=== PATIENT | male | born 1995 | race Caucasian/White ===

== ENCOUNTER 2018-10-14 16:17 | Emergency (ER) | payer OTHER ==
[2018-10-14] MEDS ORDERED: FAMOTIDINE 20 MG/2 ML VIAL IV ONE (17:13)
[2018-10-14] MEDS ORDERED: ONDANSETRON 4 MG/2 ML VIAL ONE (17:13)
[2018-10-14 17:17] LABS: Basophils % 0.2 % (0-1.3); Lymphocytes % 11.8 % (15.3-44.8); MPV 9.5 fL (7.6-11.3); RBC Red Blood Cell Count 4.81 M/uL (4.33-5.43)
[2018-10-14 17:30] LABS: Albumin 3.6 g/dL (3.4-5.0); Bilirubin Direct 0.2 mg/dL (0-0.2); Bilirubin Total 0.5 mg/dL (0.2-1.0); Potassium 3.9 mmol/L (3.5-5.1); Protein, Total 6.8 g/dL (6.4-8.2)
[2018-10-14 17:35] LABS: Urine Blood NEGATIVE (NEG); Urine Glucose NEGATIVE (NEG); Urine Protein 1+ (NEG); Urine pH 7.5 (5.0-7.0)
[2018-10-14 17:45] LABS: Urine Bacteria <20 /HPF (NONE SEEN); Urine Culture Reflex Order NOT NEEDED; Urine RBC NONE SEEN /HPF (NONE SEEN)
[2018-10-14] MEDS ORDERED: MORPHINE 2 MG/ML SYR ONE (18:17)
--- NOTE | 2018-10-14 18:19 | RAD REPORT ---
EXAM DESCRIPTION: CTAbdomen Pelvis W Contrast - 10/14/2018 6:10 pm CLINICAL HISTORY: Abdominal pain. upper abdomen pain COMPARISON: CT ABD PELVIS W CONTRAST dated 05/04/2013 TECHNIQUE: Biphasic CT imaging of the abdomen and pelvis was performed with 100 ml non-ionic IV cont rast. All CT scans are performed using dose optimization technique as appropriate and may include automated exposure control or mA/KV adjustment according to patient size. FINDINGS: The lung bases are clear. The liver, spleen, pancreas, adrenal glands and kidneys are within normal limits. Multiple thickened and prominent small bowel loops are present in the left abdomen. A few mildly prom inent small bowel lymph nodes are present in the mesenteric. Small amount of free fluid is seen about the hepatic edge, lower abdomen and pelvis. The appendix is normal. No free air or abscess. No suspicious bony findings. IMPRESSION: Prominent and thickened small bowel loops in the left abdomen with mild free fluid prese nt. Findings suggest moderate enteritis, possibly related to infection or inflammatory bowel disease.
[2018-10-14] MEDS ORDERED: NA CHLORIDE 0.9% 1,000 ML ONE (18:29)
[2018-10-14] MEDS ORDERED: MAGNE/ALUM HYDROXD 30 ML UCUP ONE (18:43)
[2018-10-14] MEDS ORDERED: LIDOCAINE VISCOUS 2% SOLN 15 ML UDC ONE (18:43)
--- NOTE | 2018-10-14 18:45 | EDPHYS ---
Physician Documentation [facility] Name: Gildardo Mccann Age: 23 yrs Sex: Male : 1995 Arrival Date: 10/14/2018 Time: 16:23 Bed 20 Private MD: ED Physician Levon Soriano HPI: 10/14 17:00 This 23 yrs old Male presents to ER via Ambulatory with complaints of cp Abdominal Pain. 17:00 The patient presents with abdominal pain mid abdomen. Onset: The symptoms/episode cp began/occurred 1 week(s) ago. The symptoms do not radiate. Associated signs and symptoms: Pertinent positives: nausea and vomiting, anorexia, diarrhea, Pertinent negatives: blood in stools, chest pain, constipation, dysuria, fever, shortness of breath, testicular pain, vomiting blood. The symptoms are described as waxing/waning. Modifying factors: the symptoms are aggravated by food. Severity of pain: in the emergency department the pain is unchanged despite home interventions. Historical: - Allergies: 16:28 No Known Allergies; aj - Immunization history:: Adult Immunizations up to date. - Social history:: Smoking status: Patient/guardian denies using tobacco. - Ebola Screening: : Patient negative for fever greater than or equal to 101.5 degrees Fahrenheit, and additional compatible Ebola Virus Disease symptoms Patient denies exposure to infectious person Patient denies travel to an Ebola-affected area in the 21 days before illness onset No symptoms or risks identified at this time. ROS: 17:05 Constitutional: Negative for body aches, chills, fever, poor PO intake, weight loss. cp 17:05 Eyes: Negative for injury, pain, redness, and discharge. cp 17:05 ENT: Negative for drainage from ear(s), ear pain, sore throat, difficulty swallowing, difficulty handling secretions. 17:05 Cardiovascular: Negative for chest pain, palpitations. cp 17:05 Respiratory: Negative for cough, shortness of breath, wheezing. cp 17:05 Abdomen/GI: Positive for abdominal pain, nausea and vomiting, diarrhea, Negative for constipation, dysphagia, hematemesis, black/tarry stool, rectal bleeding. 17:05 : Positive for burning with urination, Negative for testicular pain 17:05 Skin: Negative for rash. 17:05 All other systems are negative. Exam: 17:15 Constitutional: The patient appears in no acute distress, alert, awake, cp non-diaphoretic, non-toxic, well developed, well nourished. 17:15 Head/Face: Normocephalic, atraumatic. cp 17:15 Eyes: Periorbital structures: appear normal, Conjunctiva: normal, no exudate, no injection, Sclera: no appreciated abnormality, Lids and lashes: appear normal, bilaterally. 17:15 ENT: External ear(s): are unremarkable, Nose: is normal, Mouth: Lips: moist, Oral mucosa: pink and intact, moist, Posterior pharynx: is normal, airway is patent, no erythema, no exudate. 17:15 Neck: ROM/movement: is normal, is supple, without pain, no range of motions limitations, no nuchal rigidity. 17:15 Chest/axilla: Inspection: normal, Palpation: is normal, no crepitus, no tenderness. 17:15 Cardiovascular: Rate: normal, Rhythm: regular. 17:15 Respiratory: the patient does not display signs of respiratory distress, Respirations: normal, no use of accessory muscles, no retractions, no splinting, no tachypnea, labored breathing, is not present, Breath sounds: are clear throughout, no decreased breath sounds, no stridor, no wheezing. 17:15 Abdomen/GI: Inspection: abdomen appears normal, Bowel sounds: active, all quadrants, Palpation: soft, in all quadrants, moderate abdominal tenderness, in the epigastric area, right upper quadrant and left upper quadrant, rebound tenderness, is not appreciated, involuntary guarding, is not appreciated. 17:15 Back: pain, is absent, ROM is normal. 17:15 Skin: no rash present. Vital Signs: 16:28 BP 158 / 83; Pulse 70; Resp 16; Temp 99.4; Pulse Ox 98% on R/A; Weight 99.79 kg; Height aj 6 ft. 0 in. (182.88 cm); 17:27 BP 127 / 74; Pulse 70; Resp 17; Pulse Ox 99% on R/A; tw2 18:29 BP 139 / 79; Pulse 80; Resp 17; Pulse Ox 97% on R/A; tw2 19:39 BP 135 / 70; Pulse 81; Resp 16; Temp 98.2; Pulse Ox 99% on R/A; Pain 0/10; ak1 16:28 Body Mass Index 29.84 (99.79 kg, 182.88 cm) aj MDM: 16:44 Patient medically screened. cp 17:00 Differential diagnosis: appendicitis, bowel obstruction, cholecystitis, Cholelithiasis, cp diverticulitis, gastritis, non-specific abd pain, pancreatitis, Peptic Ulcer Disease, Perf. Duodenal Ulcer, Perf. Gastric Ulcer. 18:44 Data reviewed: vital signs, nurses notes, lab test result(s), radiologic studies, CT cp scan. 18:44 Counseling: I had a detailed discussion with the patient and/or guardian regarding: the cp historical points, exam findings, and any diagnostic results supporting the discharge/admit diagnosis, lab results, radiology results, the need for outpatient follow up, a social insurance analyst, to return to the emergency department if symptoms worsen or persist or if there are any questions or concerns that arise at home. Response to treatment: the patient's symptoms have mildly improved after treatment, and as a result, I will discharge patient. 10/14 16:53 Order name: Basic Metabolic Panel; Complete Time: 17:36 cp 10/14 18:23 Interpretation: Normal except: GFR 71. 10/14 16:53 Order name: CBC with Diff 10/14 18:23 Interpretation: Normal except: WBC 16.7; LYM% 11.8; EOSINOPHIL % 23.7; NEUT A 10.1. 10/14 16:53 Order name: Creatinine for Radiology; Complete Time: 17:36 10/14 16:53 Order name: Hepatic Function; Complete Time: 17:36 10/14 16:53 Order name: Lipase; Complete Time: 17:36 10/14 16:53 Order name: Urine Microscopic Only; Complete Time: 17:49 cp 10/14 17:30 Order name: Urine Dipstick--Ancillary (enter results); Complete Time: 17:36 10/14 17:48 Order name: CT Abd/Pelvis - IV Contrast Only; Complete Time: 18:21 10/14 16:53 Order name: IV Saline Lock; Complete Time: 17:09 10/14 16:53 Order name: Labs collected and sent; Complete Time: 17:09 10/14 16:53 Order name: Urine Dipstick-Ancillary (obtain specimen); Complete Time: 17:26 cp 10/14 16:53 Order name: NPO; Complete Time: 17:26 cp 10/14 18:25 Order name: PO challenge; Complete Time: 19:02 cp Administered Medications: 17:02 Drug: Pepcid 20 mg Route: IVP; Site: right antecubital; tw2 17:54 Follow up: Response: No adverse reaction tw2 17:07 Drug: Zofran 4 mg Route: IVP; Site: right antecubital; tw2 17:53 Follow up: Response: No adverse reaction tw2 18:04 Drug: morphine 2 mg Route: IVP; Site: right antecubital; tw2 18:28 Follow up: Response: No adverse reaction; Pain is decreased tw2 18:28 Drug: NS 0.9% 1000 ml Route: IV; Rate: 1 bolus; Site: right antecubital; tw2 19:36 Follow up: IV Status: Completed infusion; IV Intake: 1000ml ak1 18:28 Drug: GI Cocktail without - (Maalox Suspension 30 ml, Lidocaine Liquid 2 % 15 tw2 ml) Route: PO; 19:00 Follow up: Response: No adverse reaction tw2 19:34 Not Given (Other Intervention Used): metroNIDAZOLE 500 mg 100 ml IVPB once over 30 mins ak1 19:35 Drug: Ciprofloxacin 500 mg Route: PO; ak1 19:38 Follow up: Response: No adverse reaction; Medication administered at discharge. ak1 19:36 Drug: Flagyl 500 mg Route: PO; ak1 19:38 Follow up: Response: No adverse reaction; Medication administered at discharge. ak1 Disposition: 10/14/18 18:45 Discharged to Home. Impression: Unspecified abdominal pain. - Condition is Stable. - Discharge Instructions: Abdominal Pain, Adult. - Prescriptions for Cipro 500 mg Oral Tablet - take 1 tablet by ORAL route every 12 hours for 10 days; 20 tablet. Zofran 4 mg Oral Tablet - take 1 tablet by ORAL route every 12 hours As needed; 20 tablet. Metronidazole 500 mg Oral Tablet - take 1 tablet by ORAL route every 8 hours; 30 tablet. Tramadol 50 mg Oral Tablet - take 1 tablet by ORAL route every 8 hours as needed; 15 tablet. - Medication Reconciliation Form, Thank You Letter, Antibiotic Education, Prescription Opioid Use, Work release form form. - Follow up: Refugio Chaves MD; When: 2 - 3 days; Reason: Recheck today's complaints. - Problem is new. - Symptoms have improved. Addendum: 10/16/2018 19:12 Co-signature as Attending Physician, Levon Soriano MD. r n Signatures: Dispatcher [employer] Jane Davison, RN RN Levon Marie MD MD rn Krenek, Amber RN RN ak1 Pepe Resendiz PA PA cp Wise, Tara RN RN tw2 Corrections: (The following items were deleted from the chart) 10/14 19:40 18:45 10/14/2018 18:45 Discharged to Home. Impression: Unspecified abdominal pain. ak1 Condition is Stable. Forms are Work release form, Medication Reconciliation Form, Thank You Letter, Antibiotic Education, Prescription Opioid Use. Follow up: Refugio Chaves; When: 2 - 3 days; Reason: Recheck today's complaints. Problem is new. Symptoms have improved. cp
--- NOTE | 2018-10-14 18:45 | ER ---
Nurse's Notes [facility] Name: Gildardo Mccann Age: 23 yrs Sex: Male : 1995 Arrival Date: 10/14/2018 Time: 16:23 Bed 20 Private MD: Diagnosis: Unspecified abdominal pain Presentation: 10/14 16:27 Presenting complaint: Patient states: Generalized abdominal pain for 1 week that is aj worse after eating. Intolerance of food and fluids. Transition of care: patient was not received from another setting of care. Onset of symptoms was October 07, 2018. Risk Assessment: Do you want to hurt yourself or someone else? Patient reports no desire to harm self or others. Initial Sepsis Screen: Does the patient meet any 2 criteria? No. Patient's initial sepsis screen is negative. Does the patient have a suspected source of infection? No. Patient's initial sepsis screen is negative. Care prior to arrival: None. 16:27 Method Of Arrival: Ambulatory aj 16:27 Acuity: ERIN 3 aj Triage Assessment: 16:28 General: Appears in no apparent distress. comfortable, Behavior is calm, cooperative, aj appropriate for age. Pain: Complains of pain in abdomen. Neuro: Level of Consciousness is awake, alert, obeys commands, Oriented to person, place, time, situation, Appropriate for age. Respiratory: Airway is patent Respiratory effort is even, unlabored, Respiratory pattern is regular, symmetrical. GI: Reports lower abdominal pain, upper abdominal pain, intolerance of fluids, intolerance of food, nausea, vomiting. Derm: Skin is intact, is healthy with good turgor, Skin is pink, warm \T\ dry. normal. Historical: - Allergies: 16:28 No Known Allergies; aj - Immunization history:: Adult Immunizations up to date. - Social history:: Smoking status: Patient/guardian denies using tobacco. - Ebola Screening: : Patient negative for fever greater than or equal to 101.5 degrees Fahrenheit, and additional compatible Ebola Virus Disease symptoms Patient denies exposure to infectious person Patient denies travel to an Ebola-affected area in the 21 days before illness onset No symptoms or risks identified at this time. Screenin:11 Abuse screen: Denies threats or abuse. Nutritional screening: No deficits noted. tw2 Tuberculosis screening: No symptoms or risk factors identified. Fall Risk None identified. Assessment: 17:09 General: Appears in no apparent distress. slender, Behavior is calm, cooperative, tw2 appropriate for age. Pain: Complains of pain in abdomen. Neuro: Level of Consciousness is awake, alert, obeys commands, Oriented to person, place, time, situation. Cardiovascular: Heart tones S1 S2 Patient's skin is warm and dry. Respiratory: Airway is patent Respiratory effort is even, unlabored, Respiratory pattern is regular, symmetrical, Breath sounds are clear bilaterally. GI: Abdomen is flat, Bowel sounds present X 4 quads. Abd is soft and non tender X 4 quads. Reports indigestion, nausea. : No signs and/or symptoms were reported regarding the genitourinary system. EENT: No signs and/or symptoms were reported regarding the EENT system. Derm: No signs and/or symptoms reported regarding the dermatologic system. Musculoskeletal: Range of motion: intact in all extremities. 17:27 Reassessment: Patient appears in no apparent distress at this time. No changes from tw2 previously documented assessment. Patient and/or family updated on plan of care and expected duration. Pain level reassessed. Patient is alert, oriented x 3, equal unlabored respirations, skin warm/dry/pink. 18:29 Reassessment: Patient appears in no apparent distress at this time. No changes from tw2 previously documented assessment. Patient and/or family updated on plan of care and expected duration. Pain level reassessed. Patient is alert, oriented x 3, equal unlabored respirations, skin warm/dry/pink. 19:01 Reassessment: pt given Sprite to drink at this time, tolerated well. tw2 19:38 Reassessment: Patient appears in no apparent distress at this time. Patient and/or ak1 family updated on plan of care and expected duration. Pain level reassessed. Patient is alert, oriented x 3, equal unlabored respirations, skin warm/dry/pink. Patient states feeling better. Patient states symptoms have improved. GI: Abdomen is flat, non-distended, Bowel sounds present X 4 quads. Abd is soft and non tender X 4 quads. Vital Signs: 16:28 BP 158 / 83; Pulse 70; Resp 16; Temp 99.4; Pulse Ox 98% on R/A; Weight 99.79 kg; Height aj 6 ft. 0 in. (182.88 cm); 17:27 BP 127 / 74; Pulse 70; Resp 17; Pulse Ox 99% on R/A; tw2 18:29 BP 139 / 79; Pulse 80; Resp 17; Pulse Ox 97% on R/A; tw2 19:39 BP 135 / 70; Pulse 81; Resp 16; Temp 98.2; Pulse Ox 99% on R/A; Pain 0/10; ak1 16:28 Body Mass Index 29.84 (99.79 kg, 182.88 cm) ED Course: 16:23 Patient arrived in ED. mr 16:28 Triage completed. aj 16:28 Arm band placed on right wrist. Patient placed in an exam room. aj 16:30 Bed in low position. Adult w/ patient. Pulse ox on. NIBP on. tw2 16:31 Pepe Resendiz PA is PHCP. cp 16:31 Levon Soriano MD is Attending Physician. cp 16:48 Xi Orosco RN is Primary Nurse. tw2 17:02 Inserted saline lock: 20 gauge in right antecubital area, using aseptic technique. tw2 Blood collected. 17:26 Urine Microscopic Only Sent. bd 18:12 CT Abd/Pelvis - IV Contrast Only In Process Unspecified. EDMS 18:44 Refugio Chaves MD is Referral Physician. cp 18:46 Awaiting: completion of IV fluids PRIOR to discharge. tw2 18:46 No provider procedures requiring assistance completed. tw2 19:01 Report given to ARSENIO Sepulveda - pending completion of IV fluids at this time. tw2 19:39 IV discontinued, intact, bleeding controlled, No redness/swelling at site. Pressure ak1 dressing applied. Administered Medications: 17:02 Drug: Pepcid 20 mg Route: IVP; Site: right antecubital; tw2 17:54 Follow up: Response: No adverse reaction tw2 17:07 Drug: Zofran 4 mg Route: IVP; Site: right antecubital; tw2 17:53 Follow up: Response: No adverse reaction tw2 18:04 Drug: morphine 2 mg Route: IVP; Site: right antecubital; tw2 18:28 Follow up: Response: No adverse reaction; Pain is decreased tw2 18:28 Drug: NS 0.9% 1000 ml Route: IV; Rate: 1 bolus; Site: right antecubital; tw2 19:36 Follow up: IV Status: Completed infusion; IV Intake: 1000ml ak1 18:28 Drug: GI Cocktail without - (Maalox Suspension 30 ml, Lidocaine Liquid 2 % 15 tw2 ml) Route: PO; 19:00 Follow up: Response: No adverse reaction tw2 19:34 Not Given (Other Intervention Used): metroNIDAZOLE 500 mg 100 ml IVPB once over 30 mins ak1 19:35 Drug: Ciprofloxacin 500 mg Route: PO; ak1 19:38 Follow up: Response: No adverse reaction; Medication administered at discharge. ak1 19:36 Drug: Flagyl 500 mg Route: PO; ak1 19:38 Follow up: Response: No adverse reaction; Medication administered at discharge. ak1 Intake: 19:36 IV: 1000ml; Total: 1000ml. ak1 Outcome: 18:45 Discharge ordered by MD. cp 19:39 Discharged to home ambulatory, with family. ak1 19:39 Condition: good 19:39 Discharge instructions given to patient, Instructed on discharge instructions, follow up and referral plans. no drinking with medication, no driving heavy equipment, medication usage, Demonstrated understanding of instructions, follow-up care, medications, Prescriptions given X 4. 19:40 Patient left the ED. ak1 Signatures: Dispatcher [employer] EDMS Tamika Arroyo Amanda, RN Krys Nguyen Amber RN RN ak1 Pepe Resendiz PA PA cp Wise, Tara, RN RN tw2
[2018-10-14] MEDS ORDERED: metroNIDAZOLE 500 MG TABLET ONE (19:45)
[2018-10-14] MEDS ORDERED: CIPROFLOXACIN HCL 500 MG TAB ONE (19:45)
[2018-10-14 20:43] LABS: Blood Morphology Comment NOT SEEN (NOT SEEN); Platelet Estimate ADEQ
== END 2018-10-14 19:40 | disposition home or self-care (01) ==
LOC: ER 16:17
DX: R10.9 Unspecified abdominal pain (principal)
CPT/HCPCS: 36415; 74177; 80048; 80076; 81003; 81015; 83690; 85025; 96361; 96374; 96375; 99284; J2270; J2405; J7030; Q9967

== ENCOUNTER 2018-10-21 12:13 | Inpatient (IN) | payer OTHER ==
[2018-10-21] MEDS ORDERED: DIPHENHYDRAMINE 50 MG/ML VIAL ONE (14:15)
[2018-10-21] MEDS ORDERED: NA CHLORIDE 0.9% 1,000 ML ONE (14:15)
[2018-10-21] MEDS ORDERED: METOCLOPRAMIDE 10 MG/2mL INJ ONE (14:15)
[2018-10-21 14:19] LABS: MPV 9.8 fL (7.6-11.3)
[2018-10-21 14:26] LABS: Absolute Lymphocytes (CBC) 2.1 K/uL (0.7-4.9); Basophils % 0.1 % (0-1.3); Hematocrit 48.4 % (39.6-49.0); Lymphocytes % 9.3 % (15.3-44.8); RBC Red Blood Cell Count 5.42 M/uL (4.33-5.43)
[2018-10-21] MEDS ORDERED: MORPHINE 4 MG/ML SYR ONE ×2 (14:28→17:29)
[2018-10-21 14:35] LABS: Albumin 3.8 g/dL (3.4-5.0); Bilirubin Direct 0.3 mg/dL (0-0.2); Bilirubin Total 0.6 mg/dL (0.2-1.0); Potassium 4.2 mmol/L (3.5-5.1); Protein, Total 6.8 g/dL (6.4-8.2)
[2018-10-21 14:52] LABS: Blood Morphology Comment NOT SEEN (NOT SEEN); Platelet Estimate ADEQ
[2018-10-21] MEDS ORDERED: ONDANSETRON 4 MG/2 ML VIAL ONE ×2 (15:22→17:45)
--- NOTE | 2018-10-21 16:27 | RAD REPORT ---
EXAM DESCRIPTION: CTAbdomen Pelvis W Contrast - 10/21/2018 4:19 pm CLINICAL HISTORY: Abdominal pain. vomiting, right sided abdominal pain COMPARISON: Abdomen Pelvis W Contrast dated 10/14/2018; CT ABD PELVIS W CONTRAST dated 05/04/2013 TECHNIQUE: Biphasic CT imaging of the abdomen and pelvis was performed with 100 ml non-ionic IV cont rast. All CT scans are performed using dose optimization technique as appropriate and may include automated exposure control or mA/KV adjustment according to patient size. FINDINGS: A small right pleural effusion is noted. Mild distal esophageal thickening is seen. The liver demonstrates no focal mass or intrahepatic biliary dilatation. The spleen, pancreas, adrena l glands and kidneys are within normal limits. Mild free fluid has developed in the abdomen and pelvis since comparative study. Inflammatory changes are present involving the colon particularly the hepatic flexure and transverse colon. Thickened ter omari ileum is also seen. The appendix is normal. No suspicious bony findings. IMPRESSION: Moderate enteritis/colitis pattern is identified. Mild ascites and a small right pleural effusion has developed since the comparative study.
--- NOTE | 2018-10-21 17:00 | EDPHYS ---
Physician Documentation [facility] Name: Gildardo Mccann Age: 23 yrs Sex: Male : 1995 Arrival Date: 10/21/2018 Time: 12:17 Bed 14 Private MD: Ronal Chapa ED Physician Levon Soriano HPI: 10/21 13:23 This 23 yrs old Male presents to ER via Ambulatory with complaints of jmm Abdominal Pain. 13:23 The patient presents with abdominal pain that is diffuse. jmm 13:23 Onset: The symptoms/episode began/occurred gradually. jmm 13:23 The symptoms do not radiate. Associated signs and symptoms: Pertinent positives: jmm diarrhea, vomiting. The symptoms are described as achy. Modifying factors: The symptoms are alleviated by nothing, the symptoms are aggravated by drinking. This is a 23 year old male with no chronic medical conditions that presents to the ED with complaints of generalized abdominal pain, vomiting, diarrhea beginning approx 2 weeks ago. Was seen in the ED. 1 week ago and diagnosed with colitis. Patient was evaluated by Dr. Dias outpatient. Pain increased today with inability to tolerate fluids by mouth. . Historical: - Allergies: 12:30 No Known Allergies; hb - Home Meds: 12:30 Omeprazole Oral [Active]; Zofran Oral [Active]; hb - PSHx: 12:30 None; hb - Immunization history:: Adult Immunizations up to date. - Social history:: Smoking status: Patient/guardian denies using tobacco. - Ebola Screening: : No symptoms or risks identified at this time. ROS: 13:23 Constitutional: Negative for fever, chills, and weight loss, Cardiovascular: Negative jmm for chest pain, palpitations, and edema, Respiratory: Negative for shortness of breath, cough, wheezing, and pleuritic chest pain. 13:23 MS/Extremity: Negative for injury and deformity, Neuro: Negative for headache, weakness, numbness, tingling, and seizure. 13:23 Abdomen/GI: Positive for abdominal pain, vomiting, diarrhea. 13:23 All other systems are negative. Exam: 13:23 Head/Face: atraumatic. Eyes: EOMI, no conjunctival erythema appreciated ENT: Moist jmm Mucus Membranes Neck: Trachea midline, Supple Chest/axilla: Normal chest wall appearance and motion. Cardiovascular: Regular rate and rhythm. No edema appreciated Respiratory: Normal respirations, no respiratory distress appreciated 13:23 Back: Normal ROM Skin: General appearance color normal MS/ Extremity: Moves all extremities, no obvious deformities appreciated, no edema noted to the lower extremities Neuro: Awake and alert, normal gait Psych: Behavior is normal, Mood is normal, Patient is cooperative and pleasant 13:23 Constitutional: The patient appears in no acute distress, alert, awake. 13:23 Abdomen/GI: Inspection: abdomen appears normal, Bowel sounds: normal, Palpation: soft, mild abdominal tenderness, in all quadrants. Vital Signs: 12:29 BP 136 / 85; Pulse 89; Resp 16; Temp 98.9(TE); Pulse Ox 97% on R/A; Weight 95.25 kg; hb Height 6 ft. (182.88 cm); Pain 6/10; 14:16 BP 136 / 90; Pulse 79; Resp 18; Pulse Ox 100% on R/A; aj1 15:30 BP 134 / 86; Pulse 73; Resp 18; Pulse Ox 97% on R/A; aj1 12:29 Body Mass Index 28.48 (95.25 kg, 182.88 cm) hb MDM: 13:23 Patient medically screened. [facility] 16:55 Data reviewed: vital signs, nurses notes. Counseling: I had a detailed discussion with april the patient and/or guardian regarding: the historical points, exam findings, and any diagnostic results supporting the discharge/admit diagnosis, lab results, radiology results, the need for further work-up and treatment in the hospital. ED course: I discussed the patient with Dr. Patel whom accepted admission. I also discussed the patient with Jorden Rutherford whom stated dir. Dias will consult on admission. . 10/21 13:27 Order name: Basic Metabolic Panel; Complete Time: 15:09 [facility] 10/21 13:27 Order name: CBC with Diff; Complete Time: 15: [facility] 10/21 13:27 Order name: Creatinine for Radiology; Complete Time: 15:09 [facility] 10/21 13:27 Order name: Hepatic Function; Complete Time: 15:09 [facility] 10/21 13:27 Order name: Lipase; Complete Time: 15:09 [facility] 10/21 14:31 Order name: Manual Differential; Complete Time: 15: [facility] 10/21 13:28 Order name: CT Abd/Pelvis - PO and IV Contrast; Complete Time: 16:29 [facility] 10/21 16:49 Order name: US Abdomen Limited [facility] 10/21 13:27 Order name: IV Saline Lock; Complete Time: 14:21 [facility] 10/21 13:27 Order name: Labs collected and sent; Complete Time: 14:21 [facility] Administered Medications: 14:20 Drug: diphenhydrAMINE 12.5 mg Route: IVP; Site: right antecubital; aj1 15:30 Follow up: Response: No adverse reaction aj1 14:20 Drug: morphine 4 mg Route: IVP; Site: right antecubital; aj1 15:30 Follow up: Response: No adverse reaction; Pain is decreased aj1 14:21 Drug: NS 0.9% 1000 ml Route: IV; Rate: 1 bolus; Site: right antecubital; aj1 15:30 Follow up: IV Status: Completed infusion; IV Intake: 1000ml aj1 14:21 Drug: Reglan 10 mg Route: IVP; Site: right antecubital; aj1 15:30 Follow up: Response: No adverse reaction aj1 15:08 Drug: Zofran 4 mg Route: IVP; Site: right antecubital; aj1 16:00 Follow up: Response: No adverse reaction; Nausea is decreased aj1 17:27 Drug: Zosyn 3.375 grams Route: IVPB; Infused Over: 60 mins; Site: right antecubital; aj1 18:07 Follow up: IV Status: Infusion continued upon admission; IV Intake: 50ml aj1 17:28 Drug: morphine 4 mg Route: IVP; Site: right antecubital; aj1 18:07 Follow up: Response: No adverse reaction; Pain is decreased aj1 17:33 Drug: Zofran 4 mg Route: IVP; Site: right antecubital; aj1 18:08 Follow up: Response: No adverse reaction; Nausea is decreased aj1 Disposition: 18:21 Co-signature as Attending Physician, Levon Soriano MD. rn Disposition: 10/21/18 16:59 Hospitalization ordered by Brock Patel for Observation. Preliminary diagnosis are Colitis, Failed Outpatient Therapy. - Bed requested for Telemetry/MedSurg (observation). - Status is Observation. aj1 - Condition is Stable. - Problem is new. - Symptoms are unchanged. UTI on Admission? No Signatures: Dispatcher [employer] EDMS Jeanine Muñiz RN RN aj1 Nini Richter RN Rian Castro PA PA jmm Nieto, Roman, MD MD rn Baxter, Heather, RN RN Corrections: (The following items were deleted from the chart) 16:58 16:58 10/21/2018 16:58 Discharged to Home. Impression: Colitis; Failed Outpatient jmm Therapy. Condition is Stable. Forms are Medication Reconciliation Form, Thank You Letter, Antibiotic Education, Prescription Opioid Use. Follow up: Brock Patel; When: 2 - 3 days; Reason: Recheck today's complaints, Continuance of care, Re-evaluation by your physician. [facility] 17:28 16:59 Hospitalization Ordered by Brock Patel MD for Observation. Preliminary diagnosis dw is Colitis; Failed Outpatient Therapy. Bed requested for Telemetry/MedSurg (observation). Status is Observation. Condition is Stable. Problem is new. Symptoms are unchanged. UTI on Admission? No. [facility] 18:13 17:28 10/21/2018 16:59 Hospitalization Ordered by Brock Patel MD for Observation. aj1 Preliminary diagnosis is Colitis; Failed Outpatient Therapy. Bed requested for Telemetry/MedSurg (observation). Status is Observation. Condition is Stable. Problem is new. Symptoms are unchanged. UTI on Admission? No. dw
--- NOTE | 2018-10-21 17:00 | ER ---
Nurse's Notes [facility] Name: Gildardo Mccann Age: 23 yrs Sex: Male : 1995 Arrival Date: 10/21/2018 Time: 12:17 Bed 14 [facility] MD: Ronal Chapa Diagnosis: Colitis;Failed Outpatient Therapy Presentation: 10/21 12:27 Presenting complaint: Right sided abdominal pain and N/V x 2 weeks. Not tolerating hb fluids. Transition of care: patient was not received from another setting of care. Onset of symptoms is unknown. Risk Assessment: Do you want to hurt yourself or someone else? Patient reports no desire to harm self or others. Initial Sepsis Screen: Does the patient meet any 2 criteria? No. Patient's initial sepsis screen is negative. Does the patient have a suspected source of infection? No. Patient's initial sepsis screen is negative. Care prior to arrival: None. 12:27 Method Of Arrival: Ambulatory hb 12:27 Acuity: ERIN 3 hb Historical: - Allergies: 12:30 No Known Allergies; hb - Home Meds: 12:30 Omeprazole Oral [Active]; Zofran Oral [Active]; hb - PSHx: 12:30 None; hb - Immunization history:: Adult Immunizations up to date. - Social history:: Smoking status: Patient/guardian denies using tobacco. - Ebola Screening: : No symptoms or risks identified at this time. Screenin:21 Abuse screen: Denies threats or abuse. Denies injuries from another. Nutritional aj1 screening: No deficits noted. Tuberculosis screening: No symptoms or risk factors identified. 18:09 Fall Risk No fall in past 12 months (0 pts). No secondary diagnosis (0 pts). IV access aj1 (20 points). Ambulatory Aid- None/Bed Rest/Nurse Assist (0 pts). Gait- Normal/Bed Rest/Wheelchair (0 pts) Mental Status- Oriented to own ability (0 pts). Total Saucedo Fall Scale indicates No Risk (0-24 pts). Assessment: 13:21 General: Appears in no apparent distress. uncomfortable, Behavior is calm, cooperative, aj1 appropriate for age. Pain: Complains of pain in abdomen Pain does not radiate. Neuro: Level of Consciousness is awake, alert, obeys commands, Oriented to person, place, time, situation. Cardiovascular: Patient's skin is warm and dry. Respiratory: Airway is patent Respiratory effort is even, unlabored, Respiratory pattern is regular, symmetrical. GI: Abdomen is flat, non-distended, Bowel sounds present X 4 quads. Abd is soft X 4 quads Abdomen is tender to palpation in right upper quadrant Reports nausea, vomiting, since for the past 2 weeks. : No signs and/or symptoms were reported regarding the genitourinary system. EENT: No signs and/or symptoms were reported regarding the EENT system. Derm: No signs and/or symptoms reported regarding the dermatologic system. Skin is pink, warm \T\ dry. normal. Musculoskeletal: No signs and/or symptoms reported regarding the musculoskeletal system. Circulation, motion, and sensation intact. 14:16 Reassessment: Patient appears in no apparent distress at this time. No changes from aj1 previously documented assessment. Patient and/or family updated on plan of care and expected duration. Pain level reassessed. Patient is alert, oriented x 3, equal unlabored respirations, skin warm/dry/pink. 14:36 Reassessment: Notified CT that patient has finished his contrast. aj1 15:30 Reassessment: Patient appears in no apparent distress at this time. No changes from aj1 previously documented assessment. Patient and/or family updated on plan of care and expected duration. Pain level reassessed. Patient is alert, oriented x 3, equal unlabored respirations, skin warm/dry/pink. Vital Signs: 12:29 BP 136 / 85; Pulse 89; Resp 16; Temp 98.9(TE); Pulse Ox 97% on R/A; Weight 95.25 kg; hb Height 6 ft. (182.88 cm); Pain 6/10; 14:16 BP 136 / 90; Pulse 79; Resp 18; Pulse Ox 100% on R/A; aj1 15:30 BP 134 / 86; Pulse 73; Resp 18; Pulse Ox 97% on R/A; aj1 12:29 Body Mass Index 28.48 (95.25 kg, 182.88 cm) ED Course: 12:17 Patient arrived in ED. cl3 12:17 Ronal Chapa MD is Private Physician. cl3 12:29 Triage completed. hb 12:29 Arm band placed on. hb 13:08 Jeanine Muñiz, RN is Primary Nurse. aj 13:17 Rian Dennis PA is PHCP. [facility] 13:17 Levon Soriano MD is Attending Physician. [facility] 13:21 Patient has correct armband on for positive identification. Bed in low position. Call [facility] light in reach. Side rails up X 1. 13:21 No provider procedures requiring assistance completed. aj1 14:16 Initial lab(s) drawn, by me, sent to lab. Inserted saline lock: 18 gauge in right [facility] antecubital area, using aseptic technique. Blood collected. 16:20 CT Abd/Pelvis - PO and IV Contrast In Process Unspecified. EDMS 16:24 CT completed. Patient tolerated procedure well. Patient moved to CT. Patient moved back oh from CT. 16:57 Brock Patel MD is Referral Physician. [facility] 16:59 Brock Patel MD is Hospitalizing Provider. [facility] 18:08 Report given to ARSENIO Toussaint on 2nd floor. aj 18:09 Patient admitted, IV remains in place. aj1 Administered Medications: 14:20 Drug: diphenhydrAMINE 12.5 mg Route: IVP; Site: right antecubital; aj1 15:30 Follow up: Response: No adverse reaction aj1 14:20 Drug: morphine 4 mg Route: IVP; Site: right antecubital; aj1 15:30 Follow up: Response: No adverse reaction; Pain is decreased aj1 14:21 Drug: NS 0.9% 1000 ml Route: IV; Rate: 1 bolus; Site: right antecubital; aj1 15:30 Follow up: IV Status: Completed infusion; IV Intake: 1000ml aj1 14:21 Drug: Reglan 10 mg Route: IVP; Site: right antecubital; aj1 15:30 Follow up: Response: No adverse reaction aj1 15:08 Drug: Zofran 4 mg Route: IVP; Site: right antecubital; aj1 16:00 Follow up: Response: No adverse reaction; Nausea is decreased aj1 17:27 Drug: Zosyn 3.375 grams Route: IVPB; Infused Over: 60 mins; Site: right antecubital; aj1 18:07 Follow up: IV Status: Infusion continued upon admission; IV Intake: 50ml aj1 17:28 Drug: morphine 4 mg Route: IVP; Site: right antecubital; aj1 18:07 Follow up: Response: No adverse reaction; Pain is decreased aj1 17:33 Drug: Zofran 4 mg Route: IVP; Site: right antecubital; aj1 18:08 Follow up: Response: No adverse reaction; Nausea is decreased aj1 Intake: 15:30 IV: 1000ml; Total: 1000ml. aj1 18:07 IV: 50ml; Total: 1050ml. aj1 Outcome: 16:58 Discharge ordered by MD. [facility] 16:59 Decision to Hospitalize by Provider. [facility] 18:09 Admitted to Med/surg accompanied by tech, via wheelchair, with chart. aj1 18:09 Condition: stable 18:09 Discharge instructions given to patient, Instructed on the need for admit, Demonstrated understanding of instructions. 18:13 Patient left the ED. aj Signatures: Dispatcher [employer] EDJeanine Daniel RN RN aj Rian Dennis PA PA jmm Baxter, Heather, RN RN Tommie Briones Charde cl3 Corrections: (The following items were deleted from the chart) 12:39 12:29 BP 136 / 85; Pulse 16bpm; Resp 89bpm; Pulse Ox 97% RA; Temp 98.9F Temporal; 95.25 hb kg; Height 6 ft.; BMI: 28.4; Pain 6/10; hb
[2018-10-21] MEDS ORDERED: PIPER/TAZO/NS 3.375gm 3.375 GM/100 ML BAG ONE (17:27)
--- NOTE | 2018-10-21 18:43 | RAD REPORT ---
EXAM DESCRIPTION: US - Abdomen Exam Limited - 10/21/2018 6:24 pm CLINICAL HISTORY: abdominal pain COMPARISON: Abdomen Exam Complete dated 10/19/2018 FINDINGS: The gallbladder demonstrates no gallstones. No pericholecystic fluid or gallbladder wall t hickening. The common bile duct is normal measuring 3 mm. Mild free fluid noted. IMPRESSION: Negative gallbladder/ biliary tree findings.
[2018-10-21 18:49] VITALS: BMI 28.6
--- NOTE | 2018-10-21 18:49 | P.HP ---
Patient History Date of Service: 10/21/18 Reason for admission: Colitis, failure of outpatient treatment History of Present Illness: This is a 23-year-old male with no past medical history admitted for colitis. Per patient and family at bedside, for the past 2 weeks he has been unable to eat or drink and this is got progressively worse. Starter with abdominal pain, then he started getting nausea and now he vomits even with just fluids. He did come to the ER 1 week ago. He was discharged on oral antibiotics and with outpatient follow up with GI. Patient did follow up with GI in 1 day after leaving the ER, and he was scheduled for an upper endoscopy. Upper endoscopy showed inflamed stomach. Even with the oral antibiotics for the past 1 and half weeks, patient has been progressively worsening and is unable to eat or drink anything by mouth. He therefore came into the ER today. In the ER, his WBC count was 22.7, he was hemodynamically stable. His abdominal CT showed moderate enteritis/colitis with mild ascites and small right pleural effusion. Abdominal ultrasound was pending. He received, morphine, Zofran and IV fluids along with IV Zosyn in the ER. at the time of my exam, he was alert oriented x3, in mild to moderate acute distress but hemodynamically stable. He was admitted for further care of his colitis, failed outpatient treatment. Allergies No Known Allergies Allergy (Unverified 10/21/18 17:47) Home medications list reviewed: Yes - Past Medical/Surgical History Past Medical History: Patient denies medical history -: Cyst removal from forehead - Family History Family History: Reviewed- Non-Contributory - Social History Smoking Status: Former smoker Alcohol use: Yes CD- Drugs: No Place of Residence: Home Review of Systems 10-point ROS is otherwise unremarkable Physical Examination - Vital Signs Temperature: 98.9 F Blood Pressure: 134/86 Pulse: 73 Respirations: 18 - Physical Exam General: Alert, Oriented x3, Mild distress, Moderate distress HEENT: Atraumatic, PERRLA, Mucous membr. moist/pink, EOMI, Sclerae nonicteric Neck: Supple, 2+ carotid pulse no bruit, No LAD, Without JVD or thyroid abnormality Respiratory: Clear to auscultation bilaterally, Normal air movement Cardiovascular: Regular rate/rhythm, Normal S1 S2 Gastrointestinal: Normal bowel sounds, Tenderness Musculoskeletal: No tenderness Integumentary: No rashes Neurological: Normal gait, Normal speech, Normal strength at 5/5 x4 extr, Normal tone, Normal affect Lymphatics: No axilla or inguinal lymphadenopathy - Studies Laboratory Data (last 24 hrs) 10/21/18 14:10: Creatinine 1.00 10/21/18 14:10: WBC 22.7 H* D, Hgb 16.7, Hct 48.4, Plt Count 320 10/21/18 14:10: Sodium 141, Potassium 4.2, BUN 11, Creatinine 1.05, Glucose 87, Total Bilirubin 0.6, AST 61 H, ALT 101 H, Alkaline Phosphatase 70, Lipase 186 Assessment and Plan - Problems (Diagnosis) (1) Colitis Current Visit: Yes Status: Acute (2) Failure of outpatient treatment Current Visit: Yes Status: Acute (3) Leukocytosis Current Visit: Yes Status: Acute - Plan Admit to floor with tele. CT scan of the abdomen with moderate enteritis/colitis. No abscess noted Start IV fluids. IV antibiotics, Zosyn. Pain control with IV morphine as needed Zofran for nausea Dr. Gomez consulted as patient has seen him as an outpatient. Abdominal ultrasound pending DVT prophylaxis: Lovenox GI prophylaxis: Protonix Diet: NPO Disposition: Pending symptomatic improvement and GI evaluation Discharge Plan: Home Plan to discharge in: Greater than 2 days - Advance Directives Does patient have a Living Will: No Does patient have a Durable POA for Healthcare: No Time Spent Managing Pts Care (In Minutes): 55
[2018-10-21] MEDS: NA CHLORIDE 0.9% 1,000 ML IV SCH (19:04)
[2018-10-21] MEDS: ENOXAPARIN 40 MG/0.4 ML SQ SCH (20:56)
[2018-10-21] MEDS: PIPER/TAZO/NS 4.5gm 4.5 GM/100 ML BAG IVPB SCH (23:47)
[2018-10-22 00:29] LABS: Urine Appearance CLEAR; Urine Bilirubin NEGATIVE (NEG); Urine Blood NEGATIVE (NEG); Urine Color YELLOW; Urine Glucose NEGATIVE (NEG); Urine Protein NEGATIVE (NEG); Urine Specific Gravity >=1.030 (1.005-1.030); Urine Urobilinogen 0.2 mg/dL (0.2-1.0); Urine pH 5.5 (5.0-7.0)
[2018-10-22 00:31] LABS: Urine Microscopic Reflex NO UMIC
[2018-10-22] MEDS: MORPHINE 2 MG/ML SYR IV PRN ×3 (04:33→22:16)
[2018-10-22] MEDS: ONDANSETRON 4 MG/2 ML VIAL IV PRN ×3 (04:33→22:16)
[2018-10-22] MEDS: NA CHLORIDE 0.9% 1,000 ML IV SCH ×2 (06:01→20:04)
[2018-10-22] MEDS: PIPER/TAZO/NS 4.5gm 4.5 GM/100 ML BAG IVPB SCH ×4 (06:04→23:58)
[2018-10-22 06:25] LABS: Absolute Lymphocytes (CBC) 1.6 K/uL (0.7-4.9); Basophils % 0.3 % (0-1.3); Hematocrit 41.2 % (39.6-49.0); Lymphocytes % 8.3 % (15.3-44.8); MPV 9.7 fL (7.6-11.3)
[2018-10-22 06:40] LABS: Albumin 3.2 g/dL (3.4-5.0); Bilirubin Total 0.7 mg/dL (0.2-1.0); Potassium 4.2 mmol/L (3.5-5.1); Protein, Total 5.9 g/dL (6.4-8.2)
[2018-10-22] MEDS: ENOXAPARIN 40 MG/0.4 ML SQ SCH (08:29)
[2018-10-22] MEDS: PANTOPRAZOLE 40MG TABLET PO SCH (08:29)
--- NOTE | 2018-10-22 13:11 | P.PN ---
Subjective Date of Service: 10/22/18 Chief Complaint: Colitis, failure of outpatient treatment Subjective: Improving Patient seen and examined at bedside. No family at bedside. Chart reviewed and case discussed with nursing staff. States slight improvement in abdominal pain. No acute events noted overnight. Review of Systems 10-point ROS is otherwise unremarkable Physical Examination - Vital Signs Temperature: 97.6 F Blood Pressure: 124/76 Pulse: 74 Respirations: 16 Pulse Ox (%): 95 - Physical Exam General: Alert, In no apparent distress, Oriented x3 HEENT: Atraumatic, PERRLA, EOMI Neck: Supple, JVD not distended Respiratory: Clear to auscultation bilaterally, Normal air movement Cardiovascular: Regular rate/rhythm, Normal S1 S2 Gastrointestinal: Normal bowel sounds, Tenderness Musculoskeletal: No tenderness Integumentary: No rashes Neurological: Normal speech, Normal tone, Normal affect Lymphatics: No axilla or inguinal lymphadenopathy - Studies Laboratory Data (last 24 hrs) 10/21/18 14:10: Creatinine 1.00 10/21/18 14:10: WBC 22.7 H* D, Hgb 16.7, Hct 48.4, Plt Count 320 10/21/18 14:10: Sodium 141, Potassium 4.2, BUN 11, Creatinine 1.05, Glucose 87, Total Bilirubin 0.6, AST 61 H, ALT 101 H, Alkaline Phosphatase 70, Lipase 186 Assessment And Plan - Current Problems (Diagnosis) (1) Colitis Current Visit: Yes Status: Acute (2) Failure of outpatient treatment Current Visit: Yes Status: Acute (3) Leukocytosis Current Visit: Yes Status: Acute - Plan Admit to floor with tele. CT scan of the abdomen with moderate enteritis/colitis. No abscess noted Abdominal ultrasound -with no gallstones/gallbladder etiology, normal common bile duct. Continue IV fluids. Continue IV antibiotics, Zosyn. Continue Pain control with IV morphine as needed Zofran for nausea Dr. Gomez consulted as patient has seen him as an outpatient, awaiting recommendations. DVT prophylaxis: Lovenox GI prophylaxis: Protonix Diet: NPO Disposition: Pending symptomatic improvement and GI evaluation
[2018-10-23] MEDS: NA CHLORIDE 0.9% 1,000 ML IV SCH ×4 (00:29→20:29)
[2018-10-23 05:07] LABS: Basophils % 0.4 % (0-1.3); Hematocrit 41.9 % (39.6-49.0); Lymphocytes % 9.3 % (15.3-44.8); MPV 9.9 fL (7.6-11.3); RBC Red Blood Cell Count 4.68 M/uL (4.33-5.43)
[2018-10-23 05:25] LABS: Albumin 3.1 g/dL (3.4-5.0); Bilirubin Total 0.6 mg/dL (0.2-1.0); Potassium 4.1 mmol/L (3.5-5.1); Protein, Total 5.7 g/dL (6.4-8.2)
[2018-10-23] MEDS: ONDANSETRON 4 MG/2 ML VIAL IV PRN ×4 (05:36→22:25)
[2018-10-23] MEDS: PIPER/TAZO/NS 4.5gm 4.5 GM/100 ML BAG IVPB SCH ×3 (05:39→17:06)
[2018-10-23] MEDS: PANTOPRAZOLE 40MG TABLET PO SCH (07:46)
[2018-10-23] MEDS: ENOXAPARIN 40 MG/0.4 ML SQ SCH (07:46)
[2018-10-23 09:11] LABS: Platelet Estimate ADEQ
[2018-10-23 09:12] LABS: Blood Morphology Comment NOT SEEN (NOT SEEN)
[2018-10-23] MEDS: MORPHINE 2 MG/ML SYR IV PRN ×3 (11:18→22:24)
--- NOTE | 2018-10-23 14:26 | P.PN ---
Subjective Date of Service: 10/23/18 Chief Complaint: Colitis, failure of outpatient treatment Patient seen and examined at bedside. No family at bedside. Chart reviewed and case discussed with nursing staff. States slight improvement in abdominal pain. No acute events noted overnight. Tolerating soft diet but states some bloating Review of Systems 10-point ROS is otherwise unremarkable Physical Examination - Vital Signs Temperature: 98.1 F Blood Pressure: 120/71 Pulse: 64 Respirations: 18 Pulse Ox (%): 94 - Physical Exam General: Alert, In no apparent distress, Oriented x3 HEENT: Atraumatic, PERRLA, EOMI Neck: Supple, JVD not distended Respiratory: Clear to auscultation bilaterally, Normal air movement Cardiovascular: Regular rate/rhythm, Normal S1 S2 Gastrointestinal: Normal bowel sounds, Tenderness Musculoskeletal: No tenderness Integumentary: No rashes Neurological: Normal speech, Normal tone, Normal affect Lymphatics: No axilla or inguinal lymphadenopathy Assessment And Plan - Current Problems (Diagnosis) (1) Colitis Current Visit: Yes Status: Acute (2) Failure of outpatient treatment Current Visit: Yes Status: Acute (3) Leukocytosis Current Visit: Yes Status: Acute - Plan CT scan of the abdomen with moderate enteritis/colitis. No abscess noted Abdominal ultrasound -with no gallstones/gallbladder etiology, normal common bile duct. Continue IV fluids. Continue IV antibiotics, Zosyn. Continue Pain control with IV morphine as needed Zofran for nausea Dr. Gomez consulted as patient has seen him as an outpatient,recommendations appreciated. DVT prophylaxis: Lovenox GI prophylaxis: Protonix Diet: CLD, advance as tolerated. Disposition: Pending symptomatic improvement.
[2018-10-23] MEDS ORDERED: METOCLOPRAMIDE 10 MG/2mL INJ IV ONE (17:00)
[2018-10-24] MEDS: PIPER/TAZO/NS 4.5gm 4.5 GM/100 ML BAG IVPB SCH ×4 (01:14→17:34)
[2018-10-24] MEDS: ONDANSETRON 4 MG/2 ML VIAL IV PRN ×3 (04:25→20:36)
[2018-10-24] MEDS: MORPHINE 2 MG/ML SYR IV PRN ×2 (04:25→09:25)
[2018-10-24] MEDS: NA CHLORIDE 0.9% 1,000 ML IV SCH ×3 (04:28→17:34)
[2018-10-24 06:24] LABS: Absolute Lymphocytes (CBC) 2.5 K/uL (0.7-4.9); Basophils % 0.1 % (0-1.3); Hematocrit 41.5 % (39.6-49.0); Lymphocytes % 10.5 % (15.3-44.8); RBC Red Blood Cell Count 4.68 M/uL (4.33-5.43)
[2018-10-24 06:44] LABS: ALT/SGPT 89 U/L (12-78); AST/SGOT 44 U/L (15-37); Alkaline Phosphatase 55 U/L (45-117); BUN Blood Urea Nitrogen 5 mg/dL (7-18); Bicarbonate 23 mmol/L (21-32); Bilirubin Total 0.7 mg/dL (0.2-1.0); Glucose Level 76 mg/dL (74-106); Protein, Total 5.5 g/dL (6.4-8.2); Sodium Level 142 mmol/L (136-145)
[2018-10-24 08:04] LABS: Blood Morphology Comment NOT SEEN (NOT SEEN); Platelet Estimate ADEQ
[2018-10-24] MEDS: PANTOPRAZOLE 40MG TABLET PO SCH (09:16)
[2018-10-24] MEDS: ENOXAPARIN 40 MG/0.4 ML SQ SCH (09:16)
[2018-10-24] MEDS ORDERED: HYDROCODONE/APAP 7.5/325 MG TAB PO ONE (12:00)
[2018-10-24] MEDS ORDERED: PROMETHAZINE 25 MG/ML VIAL IV ONE (12:00)
--- NOTE | 2018-10-24 14:38 | RAD REPORT ---
EXAM DESCRIPTION: CT - Abdomen Pelvis W Contrast - 10/24/2018 2:07 pm CLINICAL HISTORY: Abdominal pain COMPARISON: October 21, 2018 CT TECHNIQUE: Computed axial tomography of the abdomen pelvis was obtained. 100 cc Isovue-300 was admin istered intravenously. Oral contrast was given All CT scans are performed using dose optimization technique as appropriate and may include automated exposure control or mA/KV adjustment according to patient size. FINDINGS: The liver, spleen, pancreas, adrenal and kidneys appear unremarkable. There is no evidence of diverticulitis. A normal appendix Moderate wall thickening involves jejunum and portion of the ileum. Small to moderate amount of ascit es is present. Small right pleural effusion. Duodenal wall thickening Mild to moderate thickening of the wall of the transverse and right colon IMPRESSION: Moderate thickening of the wall of small bowel and mild to moderate colonic wall thicken ing may indicate infection or inflammation. Ischemia is another consideration.
--- NOTE | 2018-10-24 16:32 | P.PN ---
Subjective Date of Service: 10/24/18 Chief Complaint: Colitis, failure of outpatient treatment Patient seen and examined at bedside. No family at bedside. Chart reviewed and case discussed with nursing staff. Patient complaining of abdominal pain. This has been unchanged from yesterday, -08/31. Morphine not helping. Vomiting has resolved but continues to be nauseous. He denies any chest pain, shortness of breath, diarrhea, blood in stool, hematemesis, or other complaints. Review of Systems 10-point ROS is otherwise unremarkable Physical Examination - Vital Signs Temperature: 97.4 F Blood Pressure: 136/92 Pulse: 81 Respirations: 17 Pulse Ox (%): 97 - Physical Exam General: Alert, Oriented x3, Mild distress, Moderate distress HEENT: Atraumatic, PERRLA, EOMI Neck: Supple, JVD not distended Respiratory: Clear to auscultation bilaterally, Normal air movement Cardiovascular: Regular rate/rhythm, Normal S1 S2 Gastrointestinal: Distended, Tenderness Musculoskeletal: No tenderness Integumentary: No rashes Neurological: Normal speech, Normal tone, Normal affect Lymphatics: No axilla or inguinal lymphadenopathy Assessment And Plan - Current Problems (Diagnosis) (1) Colitis Current Visit: Yes Status: Acute (2) Failure of outpatient treatment Current Visit: Yes Status: Acute (3) Leukocytosis Current Visit: Yes Status: Acute - Plan Initial CT scan of the abdomen with moderate enteritis/colitis. Despite being on antibiotics, WBC count continue to be elevated, and patient continues to complain of pain. Repeat CT scan ordered to evaluate for abscess, pending. Abdominal ultrasound -with no gallstones/gallbladder etiology, normal common bile duct. Continue IV fluids. Continue IV antibiotics, Zosyn. Abdominal pain not controlled with morphine. Pain medications adjusted. Zofran for nausea. Dr. Gomez consulted as patient has seen him as an outpatient,recommendations appreciated. As patient's symptoms are not improving, potential colonoscopy Friday for further evaluation. DVT prophylaxis: Lovenox GI prophylaxis: Protonix Diet: CLD Disposition: Pending symptomatic improvement. Possible colonoscopy Friday.
[2018-10-24] MEDS ORDERED: PROMETHAZINE 25 MG TABLET PO ONE (22:28)
[2018-10-25] MEDS: HYDROCODONE/APAP 7.5/325 MG TAB PO PRN ×3 (00:12→17:12)
[2018-10-25] MEDS: PIPER/TAZO/NS 4.5gm 4.5 GM/100 ML BAG IVPB SCH ×4 (00:13→17:12)
[2018-10-25] MEDS: NA CHLORIDE 0.9% 1,000 ML IV SCH ×2 (02:29→12:56)
[2018-10-25 06:02] LABS: Absolute Lymphocytes (CBC) 2.3 K/uL (0.7-4.9); Basophils % 0.3 % (0-1.3); Hematocrit 44.1 % (39.6-49.0); RBC Red Blood Cell Count 4.88 M/uL (4.33-5.43)
[2018-10-25 06:16] LABS: ALT/SGPT 105 U/L (12-78); AST/SGOT 69 U/L (15-37); Albumin 2.9 g/dL (3.4-5.0); Alkaline Phosphatase 56 U/L (45-117); BUN Blood Urea Nitrogen 5 mg/dL (7-18); Bicarbonate 24 mmol/L (21-32); Bilirubin Total 0.7 mg/dL (0.2-1.0); Glucose Level 76 mg/dL (74-106); Potassium 4.1 mmol/L (3.5-5.1); Protein, Total 5.4 g/dL (6.4-8.2); Sodium Level 141 mmol/L (136-145)
[2018-10-25] MEDS: PANTOPRAZOLE 40MG TABLET PO SCH (08:17)
[2018-10-25] MEDS: ENOXAPARIN 40 MG/0.4 ML SQ SCH (09:00)
[2018-10-25] MEDS: ONDANSETRON 4 MG/2 ML VIAL IV PRN ×2 (10:16→17:12)
--- NOTE | 2018-10-25 11:04 | P.PN ---
Subjective Date of Service: 10/25/18 Chief Complaint: Colitis, failure of outpatient treatment Patient seen and examined at bedside. No family at bedside. Chart reviewed and case discussed with nursing staff. Patient complaining of abdominal pain that has improved. [place] is helping. Vomiting has resolved but continues to be nauseous. He did develop diarrhea last night, stool occult was sent which is positive. C. diff is pending. He denies any chest pain, shortness of breath, blood in stool, hematemesis, or other complaints. Review of Systems 10-point ROS is otherwise unremarkable Physical Examination - Vital Signs Temperature: 97.3 F Blood Pressure: 100/59 Pulse: 79 Respirations: 17 Pulse Ox (%): 96 - Physical Exam General: Alert, Oriented x3, Mild distress HEENT: Atraumatic, PERRLA, EOMI Neck: Supple, JVD not distended Respiratory: Clear to auscultation bilaterally, Normal air movement Cardiovascular: Regular rate/rhythm, Normal S1 S2 Gastrointestinal: Normal bowel sounds, No rebound, No guarding, Distended, Tenderness Musculoskeletal: No tenderness Integumentary: No rashes Neurological: Normal speech, Normal tone, Normal affect Lymphatics: No axilla or inguinal lymphadenopathy Assessment And Plan - Current Problems (Diagnosis) (1) Colitis Current Visit: Yes Status: Acute (2) Failure of outpatient treatment Current Visit: Yes Status: Acute (3) Leukocytosis Current Visit: Yes Status: Acute - Plan Initial CT scan of the abdomen with moderate enteritis/colitis. Despite being on antibiotics, WBC count continue to be elevated, and patient continues to complain of pain. Repeat CT scan ordered to evaluate for abscess, shows colonic wall thickening. Abdominal ultrasound -with no gallstones/gallbladder etiology, normal common bile duct. Continue IV fluids. Continue IV antibiotics, Zosyn. Abdominal pain not controlled with morphine. Pain medications adjusted. Pain now better controlled. Zofran for nausea. Dr. Gomez consulted as patient has seen him as an outpatient,recommendations appreciated. As patient's symptoms are not improving, potential colonoscopy Friday for further evaluation. C diff pending for possibility of C. diff colitis as patient now developed diarrhea. DVT prophylaxis: Lovenox GI prophylaxis: Protonix Diet: CLD Disposition: Pending symptomatic improvement. Possible colonoscopy Friday.
[2018-10-25] MEDS: PROMETHAZINE 25 MG/ML VIAL IV PRN ×2 (12:58→18:22)
[2018-10-25] MEDS ORDERED: GOLYTELY 4000 ML PO SCH (19:00)
[2018-10-25] MEDS: VANCOMYCIN ORAL SOLN 250 MG/5 ML OSYR PO SCH ×2 (21:00→23:04)
[2018-10-25] MEDS: FLEET ENEMA ADULT PR PRN (22:03)
[2018-10-25] MEDS ORDERED: VANCOMYCIN 1 GM/VIAL ONE (22:33)
[2018-10-25] MEDS ORDERED: WATER FOR INJ,STERILE 20 ML ONE (22:33)
[2018-10-26] MEDS: NA CHLORIDE 0.9% 1,000 ML IV SCH ×4 (00:42→22:41)
[2018-10-26] MEDS: PIPER/TAZO/NS 4.5gm 4.5 GM/100 ML BAG IVPB SCH ×4 (00:42→17:49)
[2018-10-26] MEDS: VANCOMYCIN ORAL SOLN 250 MG/5 ML OSYR PO SCH ×3 (05:17→17:49)
[2018-10-26] MEDS: FLEET ENEMA ADULT PR PRN (05:18)
[2018-10-26] MEDS: PROMETHAZINE 25 MG/ML VIAL IV PRN ×3 (06:01→22:37)
[2018-10-26] MEDS: MORPHINE 2 MG/ML SYR IV PRN (06:01)
[2018-10-26 06:05] LABS: Absolute Lymphocytes (CBC) 2.4 K/uL (0.7-4.9); Basophils % 0.3 % (0-1.3); Hematocrit 43.5 % (39.6-49.0); Lymphocytes % 8.9 % (15.3-44.8); MPV 10.2 fL (7.6-11.3); RBC Red Blood Cell Count 4.82 M/uL (4.33-5.43)
[2018-10-26 06:13] LABS: ALT/SGPT 93 U/L (12-78); AST/SGOT 45 U/L (15-37); Albumin 2.8 g/dL (3.4-5.0); Alkaline Phosphatase 60 U/L (45-117); BUN Blood Urea Nitrogen 5 mg/dL (7-18); Bicarbonate 21 mmol/L (21-32); Bilirubin Total 0.6 mg/dL (0.2-1.0); Glucose Level 71 mg/dL (74-106); Potassium 4.1 mmol/L (3.5-5.1); Protein, Total 5.4 g/dL (6.4-8.2); Sodium Level 140 mmol/L (136-145)
[2018-10-26] MEDS: PANTOPRAZOLE 40MG TABLET PO SCH (07:30)
[2018-10-26 07:49] LABS: Blood Morphology Comment NOT SEEN (NOT SEEN); Platelet Estimate ADEQ
[2018-10-26] MEDS ORDERED: Ringers Lactate 1,000 ML IV ONE (09:03)
--- NOTE | 2018-10-26 09:32 | P.PN ---
Subjective Date of Service: 10/26/18 Chief Complaint: Colitis, failure of outpatient treatment Patient seen and examined at bedside. No family at bedside. Chart reviewed and case discussed with nursing staff. Patient complaining of abdominal pain that has improved. [place] is helping. Vomiting has resolved but continues to be nauseous. He did develop diarrhea last night, stool occult was sent which is positive. C. diff is negative. He denies any chest pain, shortness of breath, blood in stool, hematemesis, or other complaints. Review of Systems 10-point ROS is otherwise unremarkable Physical Examination - Vital Signs Temperature: 98.0 F Blood Pressure: 124/68 Pulse: 84 Respirations: 16 Pulse Ox (%): 96 - Physical Exam General: Alert, Oriented x3, Mild distress, Moderate distress HEENT: Atraumatic, PERRLA, EOMI Neck: Supple, JVD not distended Respiratory: Clear to auscultation bilaterally, Normal air movement Cardiovascular: Regular rate/rhythm, Normal S1 S2 Gastrointestinal: Normal bowel sounds, Distended, Tenderness Musculoskeletal: No tenderness Integumentary: No rashes Neurological: Normal speech, Normal tone, Normal affect Lymphatics: No axilla or inguinal lymphadenopathy Assessment And Plan - Current Problems (Diagnosis) (1) Colitis Current Visit: Yes Status: Acute (2) Failure of outpatient treatment Current Visit: Yes Status: Acute (3) Leukocytosis Current Visit: Yes Status: Acute - Plan Initial CT scan of the abdomen with moderate enteritis/colitis. Despite being on antibiotics, WBC count continue to be elevated, and patient continues to complain of pain. Repeat CT scan ordered to evaluate for abscess, shows colonic wall thickening. Abdominal ultrasound -with no gallstones/gallbladder etiology, normal common bile duct. Continue IV fluids. Continue IV antibiotics, Zosyn. Abdominal pain not controlled with morphine. Pain medications adjusted. Pain now better controlled. Zofran for nausea. Dr. Gomez consulted as patient has seen him as an outpatient,recommendations appreciated. Patient is pending colonoscopy today C diff negative. He was on oral vancomycin, per gastroenterology. Will discontinue as C. diff is negative. WBC count elevated despite being on IV antibiotics. Will wait for clostridia results to make changes. May need to adjust antibiotics DVT prophylaxis: Lovenox GI prophylaxis: Protonix Diet: CLD Disposition: Pending symptomatic improvement. Pending colonoscopy today
[2018-10-26] MEDS ORDERED: LIDOCAINE 1% MPF 5 ML VIAL ONE (10:01)
[2018-10-26] MEDS ORDERED: PROPOFOL 200 MG/20 ML VIAL IV ONE ×2 (10:01→10:02)
[2018-10-26 13:16] LABS: C-Reactive Protein 18.5 mg/L (<3.00); Ferritin 247.4 ng/mL (26-388)
--- NOTE | 2018-10-26 13:43 | CON ---
Date of Consultation: 10/22/2018 Reason For Consultation: Colitis, on CT. History Of Presenting Illness: The patient is a 23-year-old gentleman who was seen in our clinic deonte e time ago. He had recently been to the ER with complaints of abdominal pain, nausea and vomiting. Initial testing did not reveal any specific findings, but fluid in the small bowel loops. He was dis charged on antibiotics. He had undergone upper endoscopy with no obstructive findings and was schedu led for a colon; however, his condition worsened and he was admitted. When I saw the patient on 1st evening 6 p.m. he actually stated that he was feeling better, he was walking around. White bl ood cell count was elevated to 22 initially, but then improved to 19. Allergies: NO KNOWN DRUG ALLERGIES. Past Medical History: Noncontributory. Past Surgical History: Cyst removal from forehead. Family History: Noncontributory. Social History: Ex-smoker and also drinks occasional alcohol. Denies drugs. Review of Systems: GI: As in HPI, otherwise negative. Remainder of 10-point review of systems is negative. Physical Examination: Vital Signs: , pulse 73, respiratory rate 18. He had been afebrile. Head: Atraumatic, normocephalic. Eyes: Pupils equally reactive. Neck: Supple. Chest: Clear to auscultation bilaterally. Abdomen: Soft. Mild diffuse tenderness. Bowel sounds are present. Extremities: No pedal edema. Laboratory Data: Reviewed, as mentioned above. Elevated white blood cell count. CT reviewed, colit is and small bowel inflammation. Impression: A 23-year-old gentleman with nausea and vomiting. No diarrhea at this time with finding s of inflammation of the colon and small bowel. Primary differential includes infectious versus infl ammatory. Plan: Continue current management. He seems to be better than when he was admitted. Continue broad -spectrum antibiotics for now. If he has any bowel movement, we will need checking stool for C diff and continue IV fluids. If his condition continues to improve, you will need a colonoscopy on an out patient basis in 2-3 weeks' time. /JUAN MANUEL Voice ID: [id number] Report ID: [id number]
--- NOTE | 2018-10-26 13:55 | PN ---
Date of Progress Note: 10/22/2018 I actually had a detailed discussion with the patient's father and also Dr. Patel. Patient's white c ount had actually increased and he started to have nausea and vomiting. This is quite unusual. C di ff would be a concern; however, infectious colitis still a possibility. Inflammatory bowel disease i s also possible. Given the current situation, this would be the plan of care. We will repeat labs t omorrow. If his condition and labs do not improve, we will repeat a CT scan to rule out any abscess or other gross infectious pathology. If CAT scan is negative and white count does not improve with F lagyl and the Zosyn, we will proceed with a colonoscopy. I had discussed with the father and the pat ient before that a colonoscopy would not be ideal in an acutely inflamed colon, but will be necessary to make a diagnosis if there we do not see any improvement. They understand and agree with the plan of care. /JUAN MANUEL Voice ID: [id number] Report ID: [id number]
[2018-10-26] MEDS: HYDROCODONE/APAP 7.5/325 MG TAB PO PRN ×2 (17:48→22:42)
--- NOTE | 2018-10-26 23:29 | OP ---
Surgeon: Umang Gomez MD Procedure To Be Performed: Colonoscopy. Indication For Colonoscopy: Abnormal CT showing right-sided colitis and distal ileal inflammation, p ersistent leukocytosis without any improvement with broad-spectrum antibiotics. Technique: After obtaining informed consent from the patient and explaining risks and complications, which include, but are not limited to bleeding, infection, perforation, anesthesia complications. P atient was placed in the left lateral position and sedation was given. Subsequently, a digital recta l exam was performed and then scope was inserted into the rectum and carefully guided up till the ter omari ileum. After the completion of examination, scope and equipment were withdrawn and procedure t erminated in a safe manner. Findings: Digital rectal exam did not show any significant pathology. Around about [address] omari ileum was visualized. The mucosa appeared normal without any erythema or ulceration. Multiple biopsies were taken. The colonic mucosa from cecum till the descending appeared completely normal w ithout any evidence of ulceration, inflammation, or decreased vascularity. In the distal descending and the sigmoid region, there was mild patchy erythema seen, which more than likely appears to be a n onspecific finding. Retroflexion revealed grade 1 internal hemorrhoids. Random biopsies taken from the right and left colon, of course the left colonic biopsies included the erythema that was seen. Complications: None. Tolerance To Anesthesia: Excellent. Postoperative Diagnosis: Minimal patchy erythema in the sigmoid region, otherwise normal colonic or terminal ileal findings just based on the findings alone, and the patient's symptoms and the leukocyt osis cannot be explained. Plan: I have spoken to Pathology. They would be able to ness the specimen and give us the results b y tomorrow morning. We have spoken to Dr. Patel. He is going to consider Infectious Disease or [place] tology input if available. We will also check for peripheral smear. I have ordered stool for ova an d parasite. Depending on what biopsies show, may need steroids versus other forms of treatment. If biopsies are negative, we have not been able to diagnose a GI cause for patient's symptoms. Another consideration would be if the patient's white count continues to go up with negative biopsies, he may need to be transferred to a tertiary care center. All of this was discussed with the family as well and the patient. We will continue to follow. /JUAN MANUEL Voice ID: [id number] Report ID: [id number]
[2018-10-27] MEDS: PIPER/TAZO/NS 4.5gm 4.5 GM/100 ML BAG IVPB SCH ×4 (00:11→17:18)
[2018-10-27] MEDS: VANCOMYCIN ORAL SOLN 250 MG/5 ML OSYR PO SCH ×4 (00:11→17:18)
[2018-10-27] MEDS: NA CHLORIDE 0.9% 1,000 ML IV SCH ×4 (04:29→23:15)
[2018-10-27 05:45] LABS: Hematocrit 43.3 % (39.6-49.0); MPV 9.7 fL (7.6-11.3); RBC Red Blood Cell Count 4.83 M/uL (4.33-5.43)
[2018-10-27 06:09] LABS: ALT/SGPT 76 U/L (12-78); AST/SGOT 39 U/L (15-37); Albumin 2.7 g/dL (3.4-5.0); Alkaline Phosphatase 49 U/L (45-117); BUN Blood Urea Nitrogen 3 mg/dL (7-18); Bicarbonate 23 mmol/L (21-32); Bilirubin Total 0.5 mg/dL (0.2-1.0); Glucose Level 77 mg/dL (74-106); Phosphorus 3.7 mg/dL (2.5-4.9); Potassium 3.8 mmol/L (3.5-5.1); Protein, Total 5.3 g/dL (6.4-8.2); Sodium Level 142 mmol/L (136-145)
[2018-10-27 07:44] LABS: Blood Morphology Comment NOT SEEN (NOT SEEN); Platelet Estimate ADEQ
[2018-10-27] MEDS: PROMETHAZINE 25 MG/ML VIAL IV PRN ×2 (07:57→17:31)
[2018-10-27] MEDS: PANTOPRAZOLE 40MG TABLET PO SCH (08:00)
[2018-10-27] MEDS ORDERED: POTASSIUM CL SA 10 MEQ TAB PO ONE (09:00)
[2018-10-27] MEDS: ENOXAPARIN 40 MG/0.4 ML SQ SCH (09:00)
[2018-10-27] MEDS: HYDROCODONE/APAP 7.5/325 MG TAB PO PRN (09:06)
[2018-10-27] MEDS ORDERED: METOCLOPRAMIDE 10 MG/2mL INJ IV SCH (11:00)
[2018-10-27] MEDS ORDERED: IVERMECTIN 3 MG TABLETS PO SCH (11:00)
[2018-10-27] MEDS: METHYLPREDNISOLONE 40 MG INJ IV SCH (16:37)
--- NOTE | 2018-10-27 18:30 | PN ---
Date of Progress Note: 10/27/2018 Subjective: Patient is seen and examined. Chart reviewed and case discussed with RN and Dr. Anton marcos. Family at the bedside. Treatment plan was explained. All questions were answered. Family was r equesting possibility of transfer. Medications: List reviewed. Physical Examination: Vital Signs: Temperature 97.4, heart rate 98, blood pressure 129/77, respirations 18, O2 of 95% on r oom air. General: Awake, alert, oriented x3, ill-appearing male. CV: S1, S2. Regular rate and rhythm. Peripheral pulses present. Respiratory: Moving air well bilaterally. No wheezing or stridor. Gastrointestinal: Abdomen is soft. Tenderness to palpation. No rebound or guarding. Positive bindu l sounds. Extremities: No clubbing, cyanosis, or edema. Neurologic: Nonfocal. Laboratory Data: Sodium 142, potassium 3.8, chloride 110, CO2 of 23, BUN 3, creatinine 0.77, glucose 77, calcium 7.5, phosphorus 3.7, albumin 2.7. WBC 30.2, H and H of 15 and 43.3, platelets 238. Str ongyloides antibody sent off, currently pending. Hepatitis panel and HIV panel pending. IgE panel p ending. C diff assay is negative. Fecal occult blood is positive. Ova and parasites is pending. P athology reports does show eosinophilia, no blasts on the peripheral blood smear. 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 Patient has had outpatient esophagogastr oduodenoscopy with eosinophilia and colonoscopy at this visit, which also showed eosinophilia. We wi ll give dose of ivermectin, unfortunately not available at the hospital pharmacy. We will have fatjairon r warp picker from outside pharmacy and have pharmacy verify the dose and give 21 mg based on weight and then continue with high-dose steroids. 2.Failure of outpatient treatment. 3.Leukocytosis. Peripheral blood smear shows eosinophilia, do not show any blast cells. Appreciate Hematology input. 4.Moderate protein-calorie malnutrition. 5.Intractable nausea, vomiting. We will continue antiemetics. We will continue with promethazine a nd we will give 1 dose of Reglan prior to ivermectin dose as to ensure absorption. Continue with ashleigh n medications. 6.Gastrointestinal and deep venous thrombosis prophylaxis addressed with PPI and Lovenox. Plan: If does not improve, may need to be transferred. However, currently we will give trial of david rmectin and then steroids. Appreciate Dr. Gomez's input. CRISTOPHER Voice ID: [id number] Report ID: [id number]
--- NOTE | 2018-10-27 20:08 | CON ---
History: This is a 23-year-old male, I was consulted for gastroenteritis. The patient was recently diagnosed with eosinophilic enteritis. The patient denies any headache. The patient has nausea and vomiting. No diarrhea. Also having abdominal pain, but feels better since in the hospital. Past Medical History: Noncontributory. Social History: Tobacco positive. Alcohol positive. Family History: Noncontributory. Medications: [place], Lovenox, Reglan, morphine, Zofran, Protonix, Zosyn, Phenergan, Fleet enema, vanc omycin. Allergies: NO KNOWN DRUG ALLERGIES. Review of Systems: A 10-point review was performed. Physical Examination: General: This is a 23-year-old male, lying in bed, not in any acute cardiopulmonary distress. Vital Signs: Temperature 97, pulse 98, respirations 18, blood pressure 129/77. HEENT: Unremarkable. Neck: Supple. Lungs: Clear to auscultation. Abdomen: Soft. Bowel sounds present. Tenderness in lower quadrant. Extremities: No edema. Laboratory Data: Shows WBC 30,000, hemoglobin 15, platelets are 238. Chemistry shows sodium 142, po tassium 3.8, chloride 110, bicarb 23, BUN 3, creatinine 0.77, glucose 77. Assessment And Plan: Gastroenteritis, currently on broad-spectrum antibiotic as discussed with the h ospitalist. 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 We wi ll plan with the GI team and continue current treatment until patient is on steroids and p anupama medication. We will follow the patient as needed. ECTOR/JUAN MANUEL Voice ID: [id number] Report ID: [id number]
[2018-10-27 21:18] VITALS: O2SAT 93
[2018-10-28] MEDS: PIPER/TAZO/NS 4.5gm 4.5 GM/100 ML BAG IVPB SCH ×3 (00:57→11:44)
[2018-10-28] MEDS: VANCOMYCIN ORAL SOLN 250 MG/5 ML OSYR PO SCH ×2 (00:57→05:21)
[2018-10-28] MEDS: METHYLPREDNISOLONE 40 MG INJ IV SCH ×2 (00:57→08:43)
[2018-10-28] MEDS: HYDROCODONE/APAP 7.5/325 MG TAB PO PRN (01:03)
[2018-10-28] MEDS: PROMETHAZINE 25 MG/ML VIAL IV PRN (01:04)
[2018-10-28 06:12] LABS: BUN Blood Urea Nitrogen 5 mg/dL (7-18); Bicarbonate 21 mmol/L (21-32); Glucose Level 135 mg/dL (74-106); Potassium 4.5 mmol/L (3.5-5.1); Sodium Level 139 mmol/L (136-145)
[2018-10-28] MEDS: PANTOPRAZOLE 40MG TABLET PO SCH (08:43)
[2018-10-28] MEDS: ENOXAPARIN 40 MG/0.4 ML SQ SCH (08:45)
[2018-10-28 08:59] LABS: Absolute Lymphocytes (CBC) 1.8 K/uL (0.7-4.9); Basophils % 0.5 % (0-1.3); Hematocrit 45.7 % (39.6-49.0); Lymphocytes % 11.5 % (15.3-44.8); MPV 9.9 fL (7.6-11.3)
[2018-10-28] MEDS: NA CHLORIDE 0.9% 1,000 ML IV SCH (11:43)
[2018-10-28 12:29] VITALS: BP 125/69; TEMP 97.1
[2018-10-28 13:44] LABS: HIV AG/AB 4TH GEN Non-reactive (Non-reactive)
--- NOTE | 2018-10-28 18:34 | PN ---
Subjective: Patient is lying in bed. No new acute event. Chart reviewed. Objective: Vital Signs: Temperature 97.1, pulse 87, respirations 16, blood pressure 120/69. No new changes on examination. Laboratory Data: Shows WBC 15.8, down from 30,000; hemoglobin 15.4; platelets are 285. Chemistry sh ows sodium 139, potassium 4.5, chloride 108, bicarb 21, BUN 5, creatinine 0.7, glucose is 135. Eosin ophil down from 61% to 4.9%. Assessment And Plan: Eosinophilic enteritis. Continue current treatment. Stop antibiotic on discha rge. We will follow the patient as needed. ECTOR/MODL Voice ID: [id number] Report ID: [id number]
[2018-10-28 20:51] LABS: Immunoglobulin G 656 mg/dL (600-1640); Immunoglobulin M 69 mg/dL (50-300)
[2018-10-28] MEDS ORDERED: METHYLPREDNISOLONE 125 MG INJ IV SCH (21:00)
[2018-10-29 03:56] LABS: HBsAG Nonreactive (Nonreactive)
--- NOTE | 2018-10-29 11:38 | DS ---
Date of service: 10/28/2018 Consultants: 1. Dr. Rojo with Infectious Disease. 2. Dr. Gomez with GI. 3. Dr. Sood with Hematology. Procedures: Colonoscopy on 10/26/2018. Postoperative Diagnosis: Minimal patchy erythema in the sigmoid region. Otherwise normal colonic or terminal ileal findings. Admitting Diagnoses: 1. Colitis. 2. Failure of outpatient treatment. 3. Leukocytosis. Discharge Diagnoses: 1. Colitis, eosinophilic; likely due to parasitic infection. 2. Failure of outpatient treatment. 3. Leukocytosis. 4. Moderate protein-calorie malnutrition. 5. Intractable nausea, vomiting; resolved. Hospital Course: Patient is a 23-year-old male with no significant past medical history, who was admitted for colitis. Patient had been seen as an outpatient, was discharged on oral antibiotics, and had followed up with GI. He had an upper endoscopy done, which showed an inflamed stomach, some gastritis. However, patient's condition worsened in the ER. His workup revealed a white count of 22,000. He was started on IV antibiotics. Cultures were obtained. C. difficile assay was negative. Stool occult blood was positive. GI was consulted. Patient underwent a colonoscopy as mentioned above. Pathology report showed eosinophilic infiltrate with further staining sent currently pending results. Ova and parasites were also sent off as well as serology for strongyloides. IgE studies are also pending at this time. Patient had intractable nausea, vomiting, unable to tolerate any p.o. intake. He had elevated liver enzymes. Iron study showed low iron and low TIBC. Patient was given ivermectin as well as IV steroids, and his condition improved significantly. CT scan had shown moderate thickening of the wall of the small bowel and [id number] colonic wall thickening, indicating infection or inflammation. Ischemia is another consideration. Patient did well after the ivermectin. He was responding well to steroids. His white blood cell count came down to 15,000. He was able to tolerate a GI soft diet. He was then cleared for discharge from GI standpoint, sent home in a stable condition. Activity: As tolerated. Medications: As per medication reconciliation list. Patient will be on a slow taper of prednisone as well as Protonix for gastritis. Followup: Follow up with primary care physician in 2-3 days. Follow up with GI , Dr. Gomez, in 1 week to have labs repeated and to go over test results obtained here in the hospital including pathology results. Return to ER for worsening condition. Diet: [place] diet. Physical Examination: General: Awake, alert, oriented x3. No acute distress. CV: S1, S2. No murmurs. Respiratory: Moving air well bilaterally. Abdomen: Soft, nontender, nondistended. Positive bowel sounds. Extremities: No clubbing, cyanosis, or edema. Neurologic: Nonfocal. Total time spent discharging the patient was 33 minutes. CRISTOPHER Voice ID: [id number] Report ID: [id number]
== END 2018-10-28 13:51 | disposition home or self-care (01) | DRG 392 ==
LOC: ER 12:13 → ERHOLD 17:04 → 4TH 17:53 → 2ND 18:11
PROVIDERS: ADMIT Family Medicine; ATTEND Family Medicine
PROC: 0DBF8ZX Excision of Right Large Intestine, Via Natural or Artificial Opening Endoscopic, Diagnostic (ICD-10-PCS; 2018-10-26)
PROC: 0DBG8ZX Excision of Left Large Intestine, Via Natural or Artificial Opening Endoscopic, Diagnostic (ICD-10-PCS; 2018-10-26)
PROC: 0DBB8ZX Excision of Ileum, Via Natural or Artificial Opening Endoscopic, Diagnostic (ICD-10-PCS; principal; 2018-10-26 10:00)
DX: K52.82 Eosinophilic colitis (principal); R18.8 Other ascites; J90 Pleural effusion, not elsewhere classified; E44.0 Moderate protein-calorie malnutrition; B82.9 Intestinal parasitism, unspecified; K64.8 Other hemorrhoids; Z68.28 Body mass index [BMI] 28.0-28.9, adult; Z87.891 Personal history of nicotine dependence
CPT/HCPCS: 36415; 74177; 76705; 80048; 80053; 80074; 80076; 81003; 82274; 82728; 82784; 82785; 83540; 83605; 83690; 83735; 84100; 84466; 85025; 85652; 86140; 87177; 87209; 87389; 87493; 88305; 88312; 94760; 96361; 96365; 96375; 99285; J1650; J2270; J2405; J2543; J2550; J2704; J2765; J2920; J7030; Q9967

== ENCOUNTER 2019-06-14 14:40 | Emergency (ER) | payer OTHER ==
--- OUTSIDE RECORDS SUMMARY | 2019-06-14 14:53 | XMS REPORT ---
:1995 [facility] Address [address] [place] [address] Dr. Nguyen [address] [place] [id number] Care Team Providers Name Role Phone JACEK JOCELIN CALLEJAS Unavailable Unavailable Problems This patient has no known problems. Allergies, Adverse Reactions, Alerts This patient has no known allergies or adverse reactions. Medications This patient has no known medications. Results Test Description Test Time Test Comments Text Results Atomic Results Result Comments OVA AND PARASITE EXAMINATION 2018-11-03 10:00:00 Test Item Value Reference Range Comments DIRECT SMEAR - O\T\P (BEAKER) No ova or parasites seen No ova or parasites seen (test rdyt=370) CONCENTRATE SMEAR - O\T\P No ova or parasites seen No ova or parasites seen (BEAKER) (test hmve=302) TRICHROME SMEAR - O\T\P (BEAKER) No ova or parasites seen No ova or parasites seen (test sjod=879) [id number] 08:06:00 Test Item Value Reference Range Comments PHOSPHORUS (BEAKER) (test zzlf=777) 4.7 mg/dL 2.3-4.7 [id number] 08:06:00 Test Item Value Reference Range Comments MAGNESIUM (BEAKER) (test clmc=409) 2.3 mg/dL 1.6-2.6 BASIC METABOLIC [id number] 08:06:00 Test Item Value Reference Range Comments SODIUM (BEAKER) (test 139 meq/L 136-145 zapl=787) POTASSIUM (BEAKER) (test 3.3 meq/L 3.5-5.1 zzbx=417) CHLORIDE (BEAKER) (test 106 meq/L 98-107 yhys=272) CO2 (BEAKER) (test 24 meq/L 22-29 ozog=193) BLOOD UREA NITROGEN 14 mg/dL 7-21 (BEAKER) (test dqvy=392) CREATININE (BEAKER) (test 0.73 mg/dL 0.57-1.25 xvvn=288) GLUCOSE RANDOM (BEAKER) 90 mg/dL 70-105 (test zgom=992) CALCIUM (BEAKER) (test 8.8 mg/dL 8.4-10.2 rakw=460) EGFR (BEAKER) (test 132 mL/min/1.73 sq m ESTIMATED GFR IS NOT qwlu=0606) ACCURATE CREATININE CLEARANCE IN PREDICTING GLOMERULAR FILTRATION RATE. ESTIMATED GFR IS NOT APPLICABLE FOR DIALYSIS PATIENTS. HEPATIC FUNCTION [id number] 08:06:00 Test Item Value Reference Range Comments TOTAL PROTEIN (BEAKER) (test ifui=902) 6.9 gm/dL 6.0-8.3 ALBUMIN (BEAKER) (test erfa=6893) 4.2 g/dL 3.5-5.0 BILIRUBIN TOTAL (BEAKER) (test aqao=388) 0.7 mg/dL 0.2-1.2 BILIRUBIN DIRECT (BEAKER) (test hxje=602) 0.3 mg/dL 0.1-0.5 ALKALINE PHOSPHATASE (BEAKER) (test dlkk=591) 67 U/L 40-150 AST (SGOT) (BEAKER) (test jzkf=369) 132 U/L 5-34 ALT (SGPT) (BEAKER) (test vpoj=995) 265 U/L 6-55 PERIPHERAL BLOOD SMEAR - PATHOLOGIST [id number] 09:44:00 Test Item Value Reference Range Comments WBC MORPHOLOGY (BEAKER) (test Toxic Granulation azby=9588) PERIPHERAL SMR REVIEW (BEAKER) Cell counts confirmed. (test yilj=5346) [id number] (BEAKER) Neris Rainey M.D. (test bnsc=5320) (electronic signature) C-REACTIVE [id number] 06:04:00 Test Item Value Reference Range Comments C-REACTIVE PROTEIN (BEAKER) (test zkrv=766) 0.56 mg/dL 0.00-0.50 [id number] 05:57:00 Test Item Value Reference Range Comments PHOSPHORUS (BEAKER) (test aowg=652) 4.7 mg/dL 2.3-4.7 [id number] 05:57:00 Test Item Value Reference Range Comments MAGNESIUM (BEAKER) (test mnht=372) 2.4 mg/dL 1.6-2.6 BASIC METABOLIC [id number] 05:57:00 Test Item Value Reference Range Comments SODIUM (BEAKER) (test 140 meq/L 136-145 mszw=979) POTASSIUM (BEAKER) (test 4.0 meq/L 3.5-5.1 olzp=337) CHLORIDE (BEAKER) (test 108 meq/L 98-107 gnpz=762) CO2 (BEAKER) (test 24 meq/L 22-29 lszp=662) BLOOD UREA NITROGEN 11 mg/dL 7-21 (BEAKER) (test shja=348) CREATININE (BEAKER) (test 0.72 mg/dL 0.57-1.25 pcoq=538) GLUCOSE RANDOM (BEAKER) 95 mg/dL 70-105 (test pghg=386) CALCIUM (BEAKER) (test 9.0 mg/dL 8.4-10.2 ecpz=494) EGFR (BEAKER) (test 134 mL/min/1.73 sq m ESTIMATED GFR IS NOT pasz=1707) ACCURATE CREATININE CLEARANCE IN PREDICTING GLOMERULAR FILTRATION RATE. ESTIMATED GFR IS NOT APPLICABLE FOR DIALYSIS PATIENTS. LIPID [id number] 05:57:00 Test Item Value Reference Range Comments TRIGLYCERIDES (BEAKER) (test awua=618) 150 mg/dL CHOLESTEROL (BEAKER) (test qhzy=342) 190 mg/dL HDL CHOLESTEROL (BEAKER) (test cfor=582) 26 mg/dL LDL CHOLESTEROL CALCULATED (BEAKER) (test 134 mg/dL xrnr=031) Triglyceride Reference Range: Low Risk <150 Borderline 150- 199 High Risk 200-499 Very High Risk >=500Cholesterol Reference Range: Low Risk <200 Borderline 200-239 High Risk > 240HDL Cholesterol Reference Range: Low Risk >=60 High Risk <40LDL Cholesterol Reference Range: Optimal <100 Near Optimal 100-129 Borderline 130-159 High 160-189 Very High >=190HEPATIC FUNCTION [id number] 05:57:00 Test Item Value Reference Range Comments TOTAL PROTEIN (BEAKER) (test hhjh=868) 6.8 gm/dL 6.0-8.3 ALBUMIN (BEAKER) (test ubtz=6582) 4.2 g/dL 3.5-5.0 BILIRUBIN TOTAL (BEAKER) (test uwqf=115) 0.6 mg/dL 0.2-1.2 BILIRUBIN DIRECT (BEAKER) (test eote=767) 0.3 mg/dL 0.1-0.5 ALKALINE PHOSPHATASE (BEAKER) (test odsj=131) 63 U/L 40-150 AST (SGOT) (BEAKER) (test jfpq=401) 59 U/L 5-34 ALT (SGPT) (BEAKER) (test jtva=228) 105 U/L 6-55 CBC W/PLT COUNT & AUTO [id number] 05:16:00 Test Item Value Reference Range Comments WHITE BLOOD CELL COUNT (BEAKER) (test gcey=641) 11.2 K/ L 3.5-10.5 RED BLOOD CELL COUNT (BEAKER) (test endu=248) 4.45 M/ L 4.63-6.08 HEMOGLOBIN (BEAKER) (test wobd=428) 13.6 GM/DL 13.7-17.5 HEMATOCRIT (BEAKER) (test tjxw=232) 39.7 % 40.1-51.0 MEAN CORPUSCULAR VOLUME (BEAKER) (test litk=459) 89.2 fL 79.0-92.2 MEAN CORPUSCULAR HEMOGLOBIN (BEAKER) (test 30.6 pg 25.7-32.2 majw=988) MEAN CORPUSCULAR HEMOGLOBIN CONC (BEAKER) (test 34.3 GM/DL 32.3-36.5 ooqd=558) RED CELL DISTRIBUTION WIDTH (BEAKER) (test 13.4 % 11.6-14.4 jtkw=811) PLATELET COUNT (BEAKER) (test itiq=299) 267 K/CU MM 150-450 MEAN PLATELET VOLUME (BEAKER) (test ddya=161) 11.1 fL 9.4-12.4 NUCLEATED RED BLOOD CELLS (BEAKER) (test 0 /100 WBC 0-0 obxf=429) NEUTROPHILS RELATIVE PERCENT (BEAKER) (test 78 % unso=495) LYMPHOCYTES RELATIVE PERCENT (BEAKER) (test 13 % qrgu=548) MONOCYTES RELATIVE PERCENT (BEAKER) (test 4 % ngmh=920) EOSINOPHILS RELATIVE PERCENT (BEAKER) (test 4 % zflu=544) BASOPHILS RELATIVE PERCENT (BEAKER) (test 0 % fjvg=251) NEUTROPHILS ABSOLUTE COUNT (BEAKER) (test 8.67 K/ L 1.78-5.38 kdys=396) LYMPHOCYTES ABSOLUTE COUNT (BEAKER) (test 1.46 K/ L 1.32-3.57 otzi=242) MONOCYTES ABSOLUTE COUNT (BEAKER) (test 0.49 K/ L 0.30-0.82 snoz=061) EOSINOPHILS ABSOLUTE COUNT (BEAKER) (test 0.45 K/ L 0.04-0.54 ucmd=308) BASOPHILS ABSOLUTE COUNT (BEAKER) (test 0.03 K/ L 0.01-0.08 qgdk=423) IMMATURE GRANULOCYTES-RELATIVE PERCENT (BEAKER) 1 % 0-1 (test kxcq=7855) IMMUNOGLOBULIN M (IGM)2018-10-29 22:39:00 Test Item Value Reference Range Comments IMMUNOGLOBULIN M (IGM) (BEAKER) (test fgad=256) 124 mg/dL 22-293 IMMUNOGLOBULIN A (IGA)2018-10-29 22:39:00 Test Item Value Reference Range Comments IMMUNOGLOBULIN A (IGA) (BEAKER) (test isos=779) 116 mg/dL 63-484 VITAMIN B12 AND [id number] 21:58:00 Test Item Value Reference Range Comments VITAMIN B12 (BEAKER) (test lwaf=049) 743 pg/mL 213-816 FOLATE (BEAKER) (test eenx=201) 5.1 ng/mL >=7.0 IRON, TIBC, % SAT. (WITHOUT FERRITIN)2018-10-29 21:24:00 Test Item Value Reference Range Comments IRON (BEAKER) (test jmgq=315) 79.0 ug/dL 40.0-160.0 TOTAL IRON BINDING CAPACITY (BEAKER) (test 213 ug/dL 250-450 cdbf=378) IRON % SATURATION (2) (BEAKER) (test xdjz=9745) 37 % 20-55 [id number] 21:23:00 Test Item Value Reference Range Comments TRIGLYCERIDES (BEAKER) (test rmxg=522) 133 mg/dL TRIGLYCERIDE REFERENCE RANGELow Risk <150Borderline Risk 150-199High Risk 200-499Very High Risk>=500U/S, ABDOMINAL, [id number] 20:36:00Abdomen limited area? Add comment if clarification is needed.->Right upper quadrantand pancreasReason for exam:->ABDOMINAL PAINFINAL REPORT Abdominal ultrasound dated 10/29/2018 Comment: Real-time transabdominal ultrasound of the right upper quadrant abdomen was performed. Liver is normal in size and measures 14.7 cm in length. The echogenicity of the liver is heterogeneous. No focal lesion is noted in the liver. Gallbladder is distended. Sludge versus small gallstones are present. No biliary dilatation is seen. Common bile duct measures 6 mm in diameter. Main portal vein measures 12 mm in diameter. Pancreas is incompletely visualized. Right kidney measures 11.1 x 5.2 x 5.6 cm. Echogenicity of the right kidney is normal. Trace ascites is present in the abdomen. There is small right pleural effusion. Abdominal aorta is normal in caliber. IVC and Hepatic veins are patent. Impression: 1. Sludgeversus small gallstones.2. Suboptimal visualization of the pancreas secondary to overlying gas.3. Trace ascites and small right pleural effusion. Signed: [facility] Verified Date/Time: 10/29/2018 20:36:59 Reading Location: [facility] [id number] Consult Reading Room HEPATIC FUNCTION [id number] 16 :01:00 Test Item Value Reference Range Comments TOTAL PROTEIN (BEAKER) (test 6.8 gm/dL 6.0-8.3 Specimen slightly hemolyzed rcag=105) ALBUMIN (BEAKER) (test 4.1 g/dL 3.5-5.0 Specimen slightly hemolyzed peon=2781) BILIRUBIN TOTAL (BEAKER) (test 0.4 mg/dL 0.2-1.2 Specimen slightly hemolyzed avyp=448) BILIRUBIN DIRECT (BEAKER) (test 0.2 mg/dL 0.1-0.5 Specimen slightly hemolyzed mjpv=039) ALKALINE PHOSPHATASE (BEAKER) 60 U/L 40-150 (test bqwi=480) AST (SGOT) (BEAKER) (test 45 U/L 5-34 Specimen slightly hemolyzed mlsh=723) ALT (SGPT) (BEAKER) (test 86 U/L 6-55 Specimen slightly hemolyzed fxbg=273) [id number] 14:04:00 Test Item Value Reference Range Comments LIPASE (BEAKER) (test zwvg=193) 641 U/L 8-78 BASIC METABOLIC [id number] 14:04:00 Test Item Value Reference Range Comments SODIUM (BEAKER) (test 141 meq/L 136-145 bjcj=492) POTASSIUM (BEAKER) (test 4.1 meq/L 3.5-5.1 Specimen slightly jgsk=088) hemolyzed CHLORIDE (BEAKER) (test 107 meq/L 98-107 iqzs=404) CO2 (BEAKER) (test 26 meq/L 22-29 wvkg=596) BLOOD UREA NITROGEN 11 mg/dL 7-21 (BEAKER) (test wmtd=892) CREATININE (BEAKER) (test 0.75 mg/dL 0.57-1.25 Specimen slightly hbvt=588) hemolyzed GLUCOSE RANDOM (BEAKER) 106 mg/dL 70-105 (test hvwr=480) CALCIUM (BEAKER) (test 9.1 mg/dL 8.4-10.2 kgtm=126) EGFR (BEAKER) (test 128 mL/min/1.73 sq m ESTIMATED GFR IS NOT qssa=2767) ACCURATE CREATININE CLEARANCE IN PREDICTING GLOMERULAR FILTRATION RATE. ESTIMATED GFR IS NOT APPLICABLE FOR DIALYSIS PATIENTS. CBC W/PLT COUNT & AUTO [id number] 13:51:00 Test Item Value Reference Range Comments WHITE BLOOD CELL COUNT (BEAKER) (test lcpd=251) 15.9 K/ L 3.5-10.5 RED BLOOD CELL COUNT (BEAKER) (test yptt=032) 4.46 M/ L 4.63-6.08 HEMOGLOBIN (BEAKER) (test unzg=096) 13.6 GM/DL 13.7-17.5 HEMATOCRIT (BEAKER) (test cpfn=604) 40.0 % 40.1-51.0 MEAN CORPUSCULAR VOLUME (BEAKER) (test lrnc=732) 89.7 fL 79.0-92.2 MEAN CORPUSCULAR HEMOGLOBIN (BEAKER) (test 30.5 pg 25.7-32.2 wmck=886) MEAN CORPUSCULAR HEMOGLOBIN CONC (BEAKER) (test 34.0 GM/DL 32.3-36.5 nscv=895) RED CELL DISTRIBUTION WIDTH (BEAKER) (test 13.5 % 11.6-14.4 jqjs=280) PLATELET COUNT (BEAKER) (test zvoq=628) 277 K/CU MM 150-450 MEAN PLATELET VOLUME (BEAKER) (test zqqk=860) 10.9 fL 9.4-12.4 NUCLEATED RED BLOOD CELLS (BEAKER) (test 0 /100 WBC 0-0 znww=092) NEUTROPHILS RELATIVE PERCENT (BEAKER) (test 77 % ectz=191) LYMPHOCYTES RELATIVE PERCENT (BEAKER) (test 8 % xyir=323) MONOCYTES RELATIVE PERCENT (BEAKER) (test 4 % ghjw=178) EOSINOPHILS RELATIVE PERCENT (BEAKER) (test 10 % hokc=044) BASOPHILS RELATIVE PERCENT (BEAKER) (test 0 % yqzi=989) NEUTROPHILS ABSOLUTE COUNT (BEAKER) (test 12.23 K/ L 1.78-5.38 psvs=390) LYMPHOCYTES ABSOLUTE COUNT (BEAKER) (test 1.30 K/ L 1.32-3.57 tqvx=272) MONOCYTES ABSOLUTE COUNT (BEAKER) (test 0.58 K/ L 0.30-0.82 kvew=431) EOSINOPHILS ABSOLUTE COUNT (BEAKER) (test 1.60 K/ L 0.04-0.54 hqbj=869) BASOPHILS ABSOLUTE COUNT (BEAKER) (test 0.05 K/ L 0.01-0.08 bgoj=178) IMMATURE GRANULOCYTES-RELATIVE PERCENT (BEAKER) 1 % 0-1 (test npli=2173)
--- OUTSIDE RECORDS SUMMARY | 2019-06-14 14:53 | XMS REPORT | Summary of Care ---
:1995 Author Organization [facility] Address [address] [id number] Care Team Providers Name Role Phone Unavailable Primary Care Provider Unavailable Reason for Visit Reason Comments Initial Consultation HFU Consult, Test & Treat (Routine) Status Reason Specialty Diagnoses / Referred By Referred To Procedures Contact Contact Authorization Not Internal Diagnoses HFU- Per Referral, Self Zaid Garcia, Needed Medicine Procedures IBDN [address] [facility] [address] [place] [address] Encounter Details Date Type Department Care Team Description 12/08/2018 Office Visit [facility] Zaid Arevalo MD Initial Consultation Medicine [address] [place] [address] (HFU) Gastroenterology [address] [facility] [place] [address] 8th Floor, [address] [phone] [place] [address] Allergies No Known Allergiesdocumented as of this encounter (statuses as of 12/24/2018) Medications Medication Sig Dispensed Refills Start Date End Date Status predniSONE Take 4 Tabs by 150 Tab 2 12/08/2018 Active (DELTASONE) 5 MG mouth daily. tablet Taper by 2.5 mg each week. predniSONE TAKE 2 TABLETS 0 10/28/2018 12/08/2018 Discontinued (DELTASONE) 20 MG BY MOUTH DAILY tablet FOR 7 DAYS, 1 TABLET DAILY FOR 5 DAYS, 1/2 TABLET DAILY FOR 3 DAYS documented as of this encounter (statuses as of 12/24/2018) Active Problems Not on filedocumented as of this encounter (statuses as of 12/24/2018) Immunizations Name Administration Dates Next Due Pneumococcal Polysaccharide 12/08/2018 documented as of this encounter Social History Tobacco Use Types Packs/Day Years Used Date Never Smoker Smokeless Tobacco: Never Used Sex Assigned at Date Recorded Not on file Job Start Date Occupation Industry Not on file Not on file Not on file Travel History Travel Start Travel End No recent travel history available. documented as of this encounter Last Filed Vital Signs Vital Sign Reading Time Taken Comments Blood Pressure 110/70 12/08/2018 11:15 AM CDT Pulse 63 12/08/2018 11:15 AM CDT Temperature 36.7 C (98 F) 12/08/2018 11:15 AM CDT Respiratory Rate 16 12/08/2018 11:15 AM CDT Oxygen Saturation - - Inhaled Oxygen Concentration - - Weight 94.1 kg (207 lb 6.4 oz) 12/08/2018 11:15 AM CDT Height 182.9 cm (6') 12/08/2018 11:15 AM CDT Body Mass Index 28.13 12/08/2018 11:15 AM CDT documented in this encounter Patient Instructions Patient InstructionsZaid Garcia MD - 12/08/2018 11:00 AM CDTDear Mr. Mccann, Here is the plan as discussed at your visit today My recommendations are as follows: 1. Taper prednisone by 2.5 mg each week 2. Resume folic acid 1 mg once a day- this is available over the counter 3. Health Maintenance Pneumovax today Follow up in 6-8 weeks. Kindly contact the office should you develop any new symptoms or have any questions or concerns regarding the recommendations detailed above. Zaid Hay M.D. documented in this encounter Progress Notes Zaid Garcia MD - 12/08/2018 11:00 AM CDT Initial Visit Note [facility] Chief Complaint Patient presents with Initial Consultation HFU HPI: Gildardo Mccann is a 23 y.o. 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 Nov 2018: Mr. Mccann developed sudden onset abdominal pain with diarrhea and was evaluated at an outside hospital. He underwent EGD and colonoscopy that revealed extensive eosinophilic infilterates throughout the GI tract. A CT scan done during the hospitalization showed adry mesentery and edema of thebowel wall. Mr. Mccann was treated empitically for strongyloides but failed to note an improvement. Hewas then transitioned to intravenous steroids with prompt improvement in symptoms. He was dischargedhome on prednisone 40 mg once a day. Mr. Mccann presents today for a follow up visit. He is now down to 20 mg of prednisone with resolutionof symptoms. He has one formed bowel movement a day. No blood in stool. No nausea or vomiting. No fevers, chills or night sweats. No abdominal pain. Medications Current Outpatient Medications on File Prior to Visit Medication Sig Dispense Refill predniSONE (DELTASONE) 20 MG tablet TAKE 2 TABLETS BY MOUTH DAILY FOR 7 DAYS , 1 TABLET DAILY FOR5 DAYS, 1/2 TABLET DAILY FOR 3 DAYS 0 No current facility-administered medications on file prior to visit. Social History No tobacco No alcohol No recreational drug use Family History No history of Crohns disease or Ulcerative Colitis No history of any GI malignancies No history of any autoimmune disorders in the family REVIEW OF SYSTEMS: General: no fever, no chills, no fatigue.Ophthalmic: no blurry vision, no erythema.ENT: no oral lesions, no vocal changes. Respiratory: no cough, no wheezing, no shortness of breath. Cardiovascular: no chest pain, no dyspnea on exertion. Gastrointestinal: see HPI. Genitourinary: no dysuria, trouble voiding , or hematuria. Musculoskeletal: no joint pains, no joint swelling. Neurological : no numbness/tingling. Dermatological: no skin rashes. Psychological: no anxiety, no depression PHYSICAL EXAM: Vitals: 12/08/18 1115 BP: 110/70 Pulse: 63 Resp: 16 Temp: 98 F (36.7 C) TempSrc: Oral Weight: 207 lb 6.4 oz (94.1 kg) Height: 6' (1.829 m) General: Alert, oriented, no apparent distress HEENT: mucosa moist, no scleral icterus or pallor noted Neck: Supple, no lymphadenopathy, no masses Chest: Clear to auscultation bilaterally CV: Normal S1, S2 Abdomen: Normoactive bowel sounds, soft, no organomegaly, nontender liver and spleen not palpable Rectal: defered Ext: No edema Neuro: no focal deficits Skin: no rashes, nodules or pallor noted Data Review: Laboratory: none The patient's intake sheet was reviewed today, with information pertaining to past medical history, family medical history, social history, allergies, and medications reviewed. The intake sheets are byprotocol scanned into the system after the clinic visit ASSESSMENT and PLAN: Gildardo Mccann is a 23 y.o. 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 Taper prednisone by 2.5 mg each week 2. Resume folic acid 1 mg once a day- this is available over the counter 3. Health Maintenance Pneumovax today Follow up in 6-8 weeks. documented in this encounter Plan of Treatment Date Type Specialty Care Team Description 01/22/2019 Office Visit Gastroenterology Zaid Garcia MD [address] [id number] Health Maintenance Due Date Last Done Comments TETANUS SHOT (ADULT) 2009 BMI FOLLOW UP PLAN 2012 HIV SCREENING 2012 FLU VACCINE > 6 MONTHS 10/22/2018 documented as of this encounter Results Not on filedocumented in this encounter Visit Diagnoses Diagnosis Need for 23-polyvalent pneumococcal polysaccharide vaccine - Primary Eosinophilic gastroenteropathy Unspecified disorder of intestine documented in this encounter Insurance Payer Benefit Plan / Subscriber ID Effective Dates Phone Address Type Group [facility] HMO/POS OPEN xxxxxxxxxxx 2017-Present [address] [facility] [phone] documented as of this encounter
--- NOTE | 2019-06-14 15:17 | RAD REPORT ---
EXAM DESCRIPTION: RAD - Chest Pa And Lat (2 Views) - 06/14/2019 3:07 pm CLINICAL HISTORY: COUGH COMPARISON: None TECHNIQUE: Frontal and lateral views of the chest were obtained. FINDINGS: The lungs are clear. Heart size is normal and central vasculature is within normal limit s. No pleural effusion or pneumothorax seen. No acute bony finding noted. No aortic abnormality. IMPRESSION: No acute cardiopulmonary process.
--- NOTE | 2019-06-14 15:35 | ER ---
Nurse's Notes [facility] Name: Gildardo Mccann Age: 23 yrs Sex: Male : 1995 Arrival Date: 06/14/2019 Time: 14:45 Bed 25 Private MD: Diagnosis: Other chest pain;Cough Presentation: 06/13 14:46 Chief complaint: Patient states: "Cough x 2 months. Seen PCP twice. Was prescribed ca1 antibiotics, steroids, cough syrups and inhalers. Still having cough and congestion and might have progressed a little bit" Reports pain and swelling on the L side of ribs. Denies fever. Coronavirus screen: Patient reports a subjective fever or greater than 100.4F, or cough, or shortness of breath, or difficulty breathing. Patient denies travel on a cruise ship or to a country the [facility] currently lists as an affected area. Patient denies contact with known and/or suspected case of COVID-19. Ebola Screen: Patient negative for fever greater than or equal to 101.5 degrees Fahrenheit, and additional compatible Ebola Virus Disease symptoms Patient denies exposure to infectious person. Patient denies travel to an Ebola-affected area in the 21 days before illness onset. No symptoms or risks identified at this time. Initial Sepsis Screen: Does the patient meet any 2 criteria? No. Patient's initial sepsis screen is negative. Does the patient have a suspected source of infection? No. Patient's initial sepsis screen is negative. Risk Assessment: Do you want to hurt yourself or someone else? Patient reports no desire to harm self or others. Onset of symptoms was June 14, 2019. 14:46 Method Of Arrival: Ambulatory ca1 14:46 Acuity: ERIN 3 ca1 Historical: - Allergies: 14:49 No Known Allergies; ca1 - Home Meds: 14:49 Albuterol Inhaler as needed [Active]; ca1 - PMHx: 14:49 None; ca1 - PSHx: 14:49 None; ca1 - Immunization history:: Adult Immunizations up to date, Flu vaccine is up to date. - Social history:: Smoking status: Patient denies any tobacco usage or history of. Screenin:30 Abuse screen: Denies threats or abuse. Denies injuries from another. Nutritional wh screening: No deficits noted. Tuberculosis screening: No symptoms or risk factors identified. Fall Risk None identified. Assessment: 15:00 General: Appears in no apparent distress. Behavior is calm, cooperative, appropriate wh for age. Pain: Denies pain. Neuro: Level of Consciousness is awake, alert, obeys commands, Oriented to person, place, time, situation, Appropriate for age. Cardiovascular: Heart tones S1 S2. Respiratory: Reports cough that is Airway is patent Respiratory effort is even, unlabored, Respiratory pattern is regular, symmetrical, Breath sounds with wheezes bilaterally. GI: Abdomen is flat, non-distended. : No signs and/or symptoms were reported regarding the genitourinary system. EENT: Throat is pink. Derm: Skin is intact, is healthy with good turgor, Skin is pink, warm \\T\\ dry. normal. Musculoskeletal: Circulation, motion, and sensation intact. Vital Signs: 14:46 BP 118 / 73; Pulse 75; Resp 18 S; Temp 98(O); Pulse Ox 98% on R/A; Weight 92.08 kg (R); ca1 Height 6 ft. (182.88 cm) (R); Pain 4/10; 15:31 BP 121 / 72; Pulse 68; Resp 18; Pulse Ox 100% on R/A; wh 14:46 Body Mass Index 27.53 (92.08 kg, 182.88 cm) ca1 ED Course: 14:45 Patient arrived in ED. mr 14:48 Triage completed. ca1 14:49 Arm band placed on right wrist. ca1 14:50 Sally Sanchez FNP-C is [facility]. snw 14:50 Levon Soriano MD is Attending Physician. snw 14:57 Stevie Byrd is Primary Nurse. wh 15:30 Patient has correct armband on for positive identification. Bed in low position. Call wh light in reach. Side rails up X 1. Pulse ox on. NIBP on. 15:33 Chest Pa And Lat (2 Views) XRAY In Process Unspecified. EDMS 15:49 No provider procedures requiring assistance completed. Patient did not have IV access wh during this emergency room visit. Administered Medications: 15:48 Drug: TORadol 30 mg Route: IM; Site: left gluteus; 16:01 Follow up: Response: No adverse reaction; Pain is decreased Outcome: 15:33 Discharge ordered by . snw 15:49 Discharged to home ambulatory. wh 15:49 Condition: stable 15:49 Discharge instructions given to patient, Instructed on discharge instructions, follow up and referral plans. medication usage, POC Demonstrated understanding of instructions, follow-up care, medications, POC Prescriptions given X 2. 16:00 Patient left the ED. Signatures: Dispatcher [employer] EDMS Sally Sanchez, DULCE-C INSURANCE CLAIMS ADJUSTER-Csnw Krys Escobedo, Stevie Nicol, Grace RN RN ca1 Corrections: (The following items were deleted from the chart) 14:52 14:46 Chief complaint: Patient states: "Cough x 2 months. Seen PCP twice. Was ca1 prescribed antibiotics, steroid, cough syrups and inhalers. Still having cough and congestion and might have progressed a little bit" Reports pain and swelling on the L side of ribs. Denies fever ca1
--- NOTE | 2019-06-14 15:35 | EDPHYS ---
Physician Documentation [facility] Name: Gildardo Mccann Age: 23 yrs Sex: Male : 1995 Arrival Date: 06/14/2019 Time: 14:45 Bed 25 Private MD: ED Physician Levon Soriano HPI: 06/13 16:44 This 23 yrs old Male presents to ER via Ambulatory with complaints of Cough, snw Wheezing. 16:44 The patient or guardian reports cough, with no sputum. Onset: The symptoms/episode snw began/occurred gradually, 3 week(s) ago, and became persistent. Severity of symptoms: At their worst the symptoms were moderate. Associated signs and symptoms: The patient has no apparent associated signs or symptoms. It is unknown whether or not the patient has had similar symptoms in the past. saw PCP x 2 for cough, took a round of abx, steroids, continues with cough, + albuterol use with mild improvement post use. Historical: - Allergies: 14:49 No Known Allergies; ca1 - Home Meds: 14:49 Albuterol Inhaler as needed [Active]; ca1 - PMHx: 14:49 None; ca1 - PSHx: 14:49 None; ca1 - Immunization history:: Adult Immunizations up to date, Flu vaccine is up to date. - Social history:: Smoking status: Patient denies any tobacco usage or history of. ROS: 16:43 Constitutional: Negative for fever, chills, and weight loss, Eyes: Negative for injury, snw pain, redness, and discharge, ENT: Negative for injury, pain, and discharge, Neck: Negative for injury, pain, and swelling, Cardiovascular: Negative for chest pain, palpitations, and edema, Abdomen/GI: Negative for abdominal pain, nausea, vomiting, diarrhea, and constipation, Back: Negative for injury and pain, : Negative for injury, bleeding, discharge, and swelling, MS/Extremity: Negative for injury and deformity, Skin: Negative for injury, rash, and discoloration, Neuro: Negative for headache, weakness, numbness, tingling, and seizure, Psych: Negative for depression, anxiety, suicide ideation, homicidal ideation, and hallucinations. 16:43 Respiratory: Positive for cough, with no reported sputum, pleurisy, of the left lateral anterior chest. Exam: 16:26 Constitutional: This is a well developed, well nourished patient who is awake, alert, snw and in no acute distress. Head/Face: Normocephalic, atraumatic. Eyes: Pupils equal round and reactive to light, extra-ocular motions intact. Lids and lashes normal. Conjunctiva and sclera are non-icteric and not injected. Cornea within normal limits. Periorbital areas with no swelling, redness, or edema. ENT: Nares patent. No nasal discharge, no septal abnormalities noted. Tympanic membranes are normal and external auditory canals are clear. Oropharynx with no redness, swelling, or masses, exudates, or evidence of obstruction, uvula midline. Mucous membranes moist. Neck: Trachea midline, no thyromegaly or masses palpated, and no cervical lymphadenopathy. Supple, full range of motion without nuchal rigidity, or vertebral point tenderness. No Meningismus. Chest/axilla: Normal chest wall appearance and motion. Nontender with no deformity. No lesions are appreciated. Cardiovascular: Regular rate and rhythm with a normal S1 and S2. No gallops, murmurs, or rubs. Normal PMI, no JVD. No pulse deficits. Abdomen/GI: Soft, non-tender, with normal bowel sounds. No distension or tympany. No guarding or rebound. No evidence of tenderness throughout. Back: No spinal tenderness. No costovertebral tenderness. Full range of motion. Skin: Warm, dry with normal turgor. Normal color with no rashes, no lesions, and no evidence of cellulitis. MS/ Extremity: Pulses equal, no cyanosis. Neurovascular intact. Full, normal range of motion. Neuro: Awake and alert, GCS 15, oriented to person, place, time, and situation. Cranial nerves II-XII grossly intact. Motor strength 5/5 in all extremities. Sensory grossly intact. Cerebellar exam normal. Normal gait. Psych: Awake, alert, with orientation to person, place and time. Behavior, mood, and affect are within normal limits. 16:26 Chest/axilla: Normal chest wall appearance and motion. Nontender with no deformity. No lesions are appreciated. 16:26 Respiratory: the patient does not display signs of respiratory distress, Respirations: normal, Breath sounds: + upper airway congestion. wheezing: that is mild. Vital Signs: 14:46 BP 118 / 73; Pulse 75; Resp 18 S; Temp 98(O); Pulse Ox 98% on R/A; Weight 92.08 kg (R); ca1 Height 6 ft. (182.88 cm) (R); Pain 4/10; 15:31 BP 121 / 72; Pulse 68; Resp 18; Pulse Ox 100% on R/A; wh 14:46 Body Mass Index 27.53 (92.08 kg, 182.88 cm) ca1 MDM: 14:52 Patient medically screened. snw 16:40 Data reviewed: vital signs, nurses notes. Data interpreted: Pulse oximetry: on room air snw is 100 %. Interpretation: normal. Counseling: I had a detailed discussion with the patient and/or guardian regarding: the historical points, exam findings, and any diagnostic results supporting the discharge/admit diagnosis, radiology results, the need for outpatient follow up, to return to the emergency department if symptoms worsen or persist or if there are any questions or concerns that arise at home. Special discussion: Based on the history and exam findings, there is no indication for further emergent testing or inpatient evaluation. I discussed with the patient/guardian the need to see the primary care provider for further evaluation of the symptoms. 06/13 14:51 Order name: Chest Pa And Lat (2 Views) XRAY snw Administered Medications: 15:48 Drug: TORadol 30 mg Route: IM; Site: left gluteus; wh 16:01 Follow up: Response: No adverse reaction; Pain is decreased Disposition: 17:23 Co-signature as Attending Physician, Levon Soriano MD. rn Disposition: 06/14/19 15:33 Discharged to Home. Impression: Other chest pain, Cough. - Condition is Stable. - Discharge Instructions: Nonspecific Chest Pain, Cool Mist Vaporizer, Cough, Adult, [id number]. - Prescriptions for Tessalon Perles 100 mg Oral Capsule - take 1 capsule by ORAL route every 8 hours As needed; 15 capsule. Albuterol Sulfate 90 mcg/actuation - inhale 1-2 puff by INHALATION route every 4-6 hours; 1 Inhaler. - Work release form, Medication Reconciliation Form, Thank You Letter, Antibiotic Education, Prescription Opioid Use form. - Follow up: Emergency Department; When: As needed; Reason: Worsening of condition. Follow up: Private Physician; When: 2 - 3 days; Reason: Recheck today's complaints, Continuance of care, Re-evaluation by your physician. Signatures: Dispatcher [employer] EDMS Sally Sanchez, COURTESY VAN DRIVER-C COURTESY VAN DRIVER-Csnw Levon Soriano MD MD rn [place], Winsy Nicol, ARSENIO Edwards RN ca1 Corrections: (The following items were deleted from the chart) 16:00 15:33 06/14/2019 15:33 Discharged to Home. Impression: Other chest pain; Cough. Condition is Stable. Forms are Medication Reconciliation Form, Thank You Letter, Antibiotic Education, Prescription Opioid Use. Follow up: Emergency Department; When: As needed; Reason: Worsening of condition. Follow up: Private Physician; When: 2 - 3 days; Reason: Recheck today's complaints, Continuance of care, Re-evaluation by your physician. snw
[2019-06-14] MEDS ORDERED: KETOROLAC 30 MG/ML INJ ONE (15:48)
[2019-06-14 16:10] VITALS: TEMP 98
[2019-06-14 16:12] VITALS: BP 121/72; O2SAT 100
== END 2019-06-14 16:00 | disposition home or self-care (01) ==
LOC: ER 14:40
DX: R05 Cough (principal)
CPT/HCPCS: 71046; 96372; 99284

== ENCOUNTER 2020-07-11 04:16 | Observation (INO) | payer BC, OTHER ==
--- OUTSIDE RECORDS SUMMARY | 2020-07-11 04:19 | XMS REPORT | Continuity of Care Document ---
:[address] [facility] t Address [address] [place] [address] Care Team Providers Name Role Phone Ruy Chapa Primary Care Physician Radha POOLE Attending Clinician JÚNIOR READ Attending Clinician Unavailable Marcie BUCKNER Admitting Clinician Unavailable Problems Condition Condition Condition Status Onset Resolution Last Treating Co mments Source Name Details Category Date Date Treatment Clinician Date Moderate Moderate Disease [facility]riti malnutriti 00:00: Me dical on on 00 Center Folic acid Folic acid Disease Active [facility] deficiency deficiency 8-10 [facility]ina kes - 00:00: Medical 00 Center 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 8-10 Karina kes - [place] 00:00: Medical 00 [place] Eosinophil Eosinophil Disease Active [facility] ic ic 8-10 [facility] gastroente gastroente 00:00: Me dical ritis ritis 00 Center Elevated Elevated Disease [facility] 00 [place] Right Right Disease Active [facility] upper upper 8-08 [facility] - quadrant quadrant 00:00: Medica l abdominal abdominal 00 Cent er pain pain Bilious Bilious Disease Active [facility] vomiting vomiting 8-08 [facility] - with with 00:00: Medical nausea nausea 00 Center Allergies, Adverse Reactions, Alerts This patient has no known allergies or adverse reactions. Family History Family Member Diagnosis Comments Start Date Stop Date Source Natural father No Known Problem [facility] Natural mother Colon polyps [facility] Social History Social Habit Start Date Stop Date Quantity Comments Source Sex Assigned At [facility] Tobacco use and 2018-10-29 2018-10-29 Never used [facility] - exposure 00:00:00 00:00:00 Medical Center Alcohol intake 2018-10-29 2018-10-29 Current drinker [facility] Ratna Patel - 00:00:00 00:00:00 of alcohol Medical Center (finding) Alcohol Comment 2018-10-29 2018-10-29 social, beer on [facility] - 00:00:00 00:00:00 weekends [facility] Smoking Status Start Date Stop Date Source Never smoker [facility] Medications Ordered Filled Start Stop Current Ordering Indication Dosage Frequency Signature Comments Components Source Medication Medication Date Date Medication? Clinician (SIG) Name Name folic acid 2019- No 1mg QD Take [address] [facility] [address] (FOLVITE) 1 8-11 08-10 tablet (1 Karina kes - MG tablet 00:00: 23:59 mg total) Me dical 00 :00 by mouth Center daily. pantoprazol Yes 40mg QD Take [address] [facility] e 8-10 by mouth [facility] - (PROTONIX) 18:50: daily. Medic al 40 MG 57 Center tablet predniSONE Yes 40mg daily [facility] (DELTASONE) 8-10 x 7 days [facility] - 10 MG 00:00: then 35mg Medical tablet 00 po daily x Center 7 days, then 30 mg po daily x 7 days, then 25mg po daily x 7 days, then 20 mg po daily. Procedures This patient has no known procedures. Plan of Care Planned Activity Planned Date Details Comments Source Future Scheduled 2019-11-23 [facility] (#[facility] [code = [facility] INFLUENZA VACCINE (#1)] Encounters Start End Encounter Admission Attending Care Care Encounter Source Date/Time Date/Time Type Type Clinicians Facility Department ID 2018-12-08 2018-12-08 Office DESEAN Garcia [id number] 10:05:20 16:46:46 Visit Manreet AMBULATOR [id number] Y [id number] Results Test Description Test Time Test Comments Results Result Comments Source OVA AND PARASITE EXAMINATION 2018-11-03 10:00:00 Test Item Value Reference Range Interpretation Comme nts DIRECT SMEAR - O\T\P (BEAKER) No ova or parasites seen No ova or parasites seen (test code = 196) CONCENTRATE SMEAR - O\T\P No ova or parasites seen No ova or parasi david seen (BEAKER) (test code = 247) TRICHROME SMEAR - O\T\P No ova or parasites seen No ova or parasite s seen (BEAKER) (test code = 248) [id number] 08:06:00 Test Item Value Reference Range Interpretation Comments PHOSPHORUS (BEAKER) (test code = 4.7 mg/dL 2.3-4.7 604) [id number] 08:06:00 Test Item Value Reference Range Interpretation Comments MAGNESIUM (BEAKER) (test code = 2.3 mg/dL 1.6-2.6 627) BASIC METABOLIC [id number] 08:06:00 Test Item Value Reference Range Interpretation Comments SODIUM (BEAKER) 139 meq/L 136-145 (test code = 381) POTASSIUM (BEAKER) 3.3 meq/L 3.5-5.1 L (test code = 379) CHLORIDE (BEAKER) 106 meq/L 98-107 (test code = 382) CO2 (BEAKER) (test 24 meq/L 22-29 code = 355) BLOOD UREA NITROGEN 14 mg/dL 7-21 (BEAKER) (test code = 354) CREATININE (BEAKER) 0.73 mg/dL 0.57-1.25 (test code = 358) GLUCOSE RANDOM 90 mg/dL 70-105 (BEAKER) (test code = 652) CALCIUM (BEAKER) 8.8 mg/dL 8.4-10.2 (test code = 697) EGFR (BEAKER) (test 132 mL/min/1.73 ESTIM ATED GFR IS code = 1092) sq m NOT ACCURATE CREATININE CLEARANCE IN PREDICTING GLOMERULAR FILTRATION RATE . ESTIMATED GFR I S NOT APPLICABLE FOR DIALYSIS PATIEN TS. HEPATIC FUNCTION [id number] 08:06:00 Test Item Value Reference Range Interpretation Comments TOTAL PROTEIN (BEAKER) (test code = 6.9 gm/dL 6.0-8.3 770) ALBUMIN (BEAKER) (test code = 1145) 4.2 g/dL 3.5-5.0 BILIRUBIN TOTAL (BEAKER) (test code 0.7 mg/dL 0.2-1.2 = 377) BILIRUBIN DIRECT (BEAKER) (test 0.3 mg/dL 0.1-0.5 code = 706) ALKALINE PHOSPHATASE (BEAKER) (test 67 U/L 40-150 code = 346) AST (SGOT) (BEAKER) (test code = 132 U/L 5-34 H 353) ALT (SGPT) (BEAKER) (test code = 265 U/L 6-55 H 347) PERIPHERAL BLOOD SMEAR - PATHOLOGIST [id number] 09:44:00 Test Item Value Reference Range Interpretation Comments WBC MORPHOLOGY Toxic Granulation (BEAKER) (test code = 7807) PERIPHERAL SMR REVIEW Cell counts confirmed. (BEAKER) (test code = 2640) [id number] Neris Rainey M.D. (BEAKER) (test code = (electronic signature) 2456) C-REACTIVE [id number] 06:04:00 Test Item Value Reference Range Interpretation Comments C-REACTIVE PROTEIN (BEAKER) (test 0.56 mg/dL 0.00-0.50 H code = 676) [id number] 05:57:00 Test Item Value Reference Range Interpretation Comments PHOSPHORUS (BEAKER) (test code = 4.7 mg/dL 2.3-4.7 604) [id number] 05:57:00 Test Item Value Reference Range Interpretation Comments MAGNESIUM (BEAKER) (test code = 2.4 mg/dL 1.6-2.6 627) BASIC METABOLIC [id number] 05:57:00 Test Item Value Reference Range Interpretation Comments SODIUM (BEAKER) 140 meq/L 136-145 (test code = 381) POTASSIUM (BEAKER) 4.0 meq/L 3.5-5.1 (test code = 379) CHLORIDE (BEAKER) 108 meq/L 98-107 H (test code = 382) CO2 (BEAKER) (test 24 meq/L 22-29 code = 355) BLOOD UREA NITROGEN 11 mg/dL 7-21 (BEAKER) (test code = 354) CREATININE (BEAKER) 0.72 mg/dL 0.57-1.25 (test code = 358) GLUCOSE RANDOM 95 mg/dL 70-105 (BEAKER) (test code = 652) CALCIUM (BEAKER) 9.0 mg/dL 8.4-10.2 (test code = 697) EGFR (BEAKER) (test 134 mL/min/1.73 ESTIM ATED GFR IS code = 1092) sq m NOT ACCURATE CREATININE CLEARANCE IN PREDICTING GLOMERULAR FILTRATION RATE . ESTIMATED GFR I S NOT APPLICABLE FOR DIALYSIS PATIEN TS. LIPID [id number] 05:57:00 Test Item Value Reference Range Interpretation Comments TRIGLYCERIDES (BEAKER) (test code = 150 mg/dL 540) CHOLESTEROL (BEAKER) (test code = 190 mg/dL 631) HDL CHOLESTEROL (BEAKER) (test code 26 mg/dL = 976) LDL CHOLESTEROL CALCULATED (BEAKER) 134 mg/dL (test code = 633) Triglyceride Reference Range: Low Risk <150 Borderline 150-199 High Risk 200-499 Very High Risk >=500Cholesterol Reference Range: Low Risk <200 Borderline 200-239 High Risk >240HDL Cholesterol Reference Range: Low Risk >=60 High Risk <40LDL Cholesterol Reference Range: Optimal <100 Near Optimal 100-129 Borderline 130-159 High 160-189 Very High >=190HEPATIC FUNCTION [id number] 05:57:00 Test Item Value Reference Range Interpretation Comments TOTAL PROTEIN (BEAKER) (test code = 6.8 gm/dL 6.0-8.3 770) ALBUMIN (BEAKER) (test code = 1145) 4.2 g/dL 3.5-5.0 BILIRUBIN TOTAL (BEAKER) (test code 0.6 mg/dL 0.2-1.2 = 377) BILIRUBIN DIRECT (BEAKER) (test 0.3 mg/dL 0.1-0.5 code = 706) ALKALINE PHOSPHATASE (BEAKER) (test 63 U/L 40-150 code = 346) AST (SGOT) (BEAKER) (test code = 59 U/L 5-34 H 353) ALT (SGPT) (BEAKER) (test code = 105 U/L 6-55 H 347) CBC W/PLT COUNT & AUTO [id number] 05:16:00 Test Item Value Reference Range Interpretation Comments WHITE BLOOD CELL COUNT (BEAKER) 11.2 K/ L 3.5-10.5 H (test code = 775) RED BLOOD CELL COUNT (BEAKER) 4.45 M/ L 4.63-6.08 L (test code = 761) HEMOGLOBIN (BEAKER) (test code = 13.6 GM/DL 13.7-17.5 L 410) HEMATOCRIT (BEAKER) (test code = 39.7 % 40.1-51.0 L 411) MEAN CORPUSCULAR VOLUME (BEAKER) 89.2 fL 79.0-92.2 (test code = 753) MEAN CORPUSCULAR HEMOGLOBIN 30.6 pg 25.7-32.2 (BEAKER) (test code = 751) MEAN CORPUSCULAR HEMOGLOBIN CONC 34.3 GM/DL 32.3-36.5 (BEAKER) (test code = 752) RED CELL DISTRIBUTION WIDTH 13.4 % 11.6-14.4 (BEAKER) (test code = 412) PLATELET COUNT (BEAKER) (test 267 K/CU MM 150-450 code = 756) MEAN PLATELET VOLUME (BEAKER) 11.1 fL 9.4-12.4 (test code = 754) NUCLEATED RED BLOOD CELLS 0 /100 WBC 0-0 (BEAKER) (test code = 413) NEUTROPHILS RELATIVE PERCENT 78 % (BEAKER) (test code = 429) LYMPHOCYTES RELATIVE PERCENT 13 % (BEAKER) (test code = 430) MONOCYTES RELATIVE PERCENT 4 % (BEAKER) (test code = 431) EOSINOPHILS RELATIVE PERCENT 4 % (BEAKER) (test code = 432) BASOPHILS RELATIVE PERCENT 0 % (BEAKER) (test code = 437) NEUTROPHILS ABSOLUTE COUNT 8.67 K/ L 1.78-5.38 H (BEAKER) (test code = 670) LYMPHOCYTES ABSOLUTE COUNT 1.46 K/ L 1.32-3.57 (BEAKER) (test code = 414) MONOCYTES ABSOLUTE COUNT (BEAKER) 0.49 K/ L 0.30-0.82 (test code = 415) EOSINOPHILS ABSOLUTE COUNT 0.45 K/ L 0.04-0.54 (BEAKER) (test code = 416) BASOPHILS ABSOLUTE COUNT (BEAKER) 0.03 K/ L 0.01-0.08 (test code = 417) IMMATURE GRANULOCYTES-RELATIVE 1 % 0-1 PERCENT (BEAKER) (test code = 2801) IMMUNOGLOBULIN M (IGM)2018-10-29 22:39:00 Test Item Value Reference Range Interpretation Comments IMMUNOGLOBULIN M (IGM) (BEAKER) 124 mg/dL 22-293 (test code = 638) IMMUNOGLOBULIN A (IGA)2018-10-29 22:39:00 Test Item Value Reference Range Interpretation Comments IMMUNOGLOBULIN A (IGA) (BEAKER) 116 mg/dL 63-484 (test code = 639) VITAMIN B12 AND [id number] 21:58:00 Test Item Value Reference Range Interpretation Comments VITAMIN B12 (BEAKER) (test code = 743 pg/mL 213-816 774) FOLATE (BEAKER) (test code = 362) 5.1 ng/mL >=7.0 L IRON, TIBC, % SAT. (WITHOUT FERRITIN)2018-10-29 21:24:00 Test Item Value Reference Range Interpretation Comments IRON (BEAKER) (test code = 547) 79.0 ug/dL 40.0-160.0 TOTAL IRON BINDING CAPACITY 213 ug/dL 250-450 L (BEAKER) (test code = 769) IRON % SATURATION (2) (BEAKER) 37 % 20-55 (test code = 2590) [id number] 21:23:00 Test Item Value Reference Range Interpretation Comments TRIGLYCERIDES (BEAKER) (test code = 133 mg/dL 540) TRIGLYCERIDE REFERENCE RANGELow Risk <150Borderline Risk 150-199High Risk 200-499Very High Risk>=500U/S, ABDOMINAL, [id number] 20:36:00Abdomen limited area? Add comment if clarification [...] and Hepatic veins are patent. Impression: 1. Sludge versus small gallstones.2. Suboptimal visualization of the pancreas secondary to overlying gas.3. Trace ascites and small right pleural effusion. Signed: Adam Chino MDReport Verified Date/Time: 10/29/2018 20:36:59 Reading Location: [facility] B1 [id number] Consult Reading Room HEPATIC FUNCTION [id number] 16:01:00 Test Item Value Reference Range Interpretation Comments TOTAL PROTEIN (BEAKER) 6.8 gm/dL 6.0-8.3 Speci men slightly (test code = 770) hemolyzed ALBUMIN (BEAKER) (test 4.1 g/dL 3.5-5.0 Speci men slightly code = 1145) hemolyzed BILIRUBIN TOTAL 0.4 mg/dL 0.2-1.2 Specimen sli ghtly (BEAKER) (test code = hemoly zed 377) BILIRUBIN DIRECT 0.2 mg/dL 0.1-0.5 Specimen sl ightly (BEAKER) (test code = hemoly zed 706) ALKALINE PHOSPHATASE 60 U/L 40-150 (BEAKER) (test code = 346) AST (SGOT) (BEAKER) 45 U/L 5-34 H Specimen slightly (test code = 353) hemolyzed ALT (SGPT) (BEAKER) 86 U/L 6-55 H Specimen slightly (test code = 347) hemolyzed [id number] 14:04:00 Test Item Value Reference Range Interpretation Comments LIPASE (BEAKER) (test code = 749) 641 U/L 8-78 H BASIC METABOLIC [id number] 14:04:00 Test Item Value Reference Range Interpretation Comments SODIUM (BEAKER) 141 meq/L 136-145 (test code = 381) POTASSIUM (BEAKER) 4.1 meq/L 3.5-5.1 Specimen slightly (test code = 379) hemolyzed CHLORIDE (BEAKER) 107 meq/L 98-107 (test code = 382) CO2 (BEAKER) (test 26 meq/L 22-29 code = 355) BLOOD UREA NITROGEN 11 mg/dL 7-21 (BEAKER) (test code = 354) CREATININE (BEAKER) 0.75 mg/dL 0.57-1.25 Specimen slightly (test code = 358) hemolyzed GLUCOSE RANDOM 106 mg/dL 70-105 H (BEAKER) (test code = 652) CALCIUM (BEAKER) 9.1 mg/dL 8.4-10.2 (test code = 697) EGFR (BEAKER) (test 128 mL/min/1.73 ESTIM ATED GFR IS code = 1092) sq m NOT ACCURATE CREATININE CLEARANCE IN PREDICTING GLOMERULAR FILTRATION RATE . ESTIMATED GFR I S NOT APPLICABLE FOR DIALYSIS PATIEN TS. CBC W/PLT COUNT & AUTO [id number] 13:51:00 Test Item Value Reference Range Interpretation Comments WHITE BLOOD CELL COUNT (BEAKER) 15.9 K/ L 3.5-10.5 H (test code = 775) RED BLOOD CELL COUNT (BEAKER) 4.46 M/ L 4.63-6.08 L (test code = 761) HEMOGLOBIN (BEAKER) (test code = 13.6 GM/DL 13.7-17.5 L 410) HEMATOCRIT (BEAKER) (test code = 40.0 % 40.1-51.0 L 411) MEAN CORPUSCULAR VOLUME (BEAKER) 89.7 fL 79.0-92.2 (test code = 753) MEAN CORPUSCULAR HEMOGLOBIN 30.5 pg 25.7-32.2 (BEAKER) (test code = 751) MEAN CORPUSCULAR HEMOGLOBIN CONC 34.0 GM/DL 32.3-36.5 (BEAKER) (test code = 752) RED CELL DISTRIBUTION WIDTH 13.5 % 11.6-14.4 (BEAKER) (test code = 412) PLATELET COUNT (BEAKER) (test 277 K/CU MM 150-450 code = 756) MEAN PLATELET VOLUME (BEAKER) 10.9 fL 9.4-12.4 (test code = 754) NUCLEATED RED BLOOD CELLS 0 /100 WBC 0-0 (BEAKER) (test code = 413) NEUTROPHILS RELATIVE PERCENT 77 % (BEAKER) (test code = 429) LYMPHOCYTES RELATIVE PERCENT 8 % (BEAKER) (test code = 430) MONOCYTES RELATIVE PERCENT 4 % (BEAKER) (test code = 431) EOSINOPHILS RELATIVE PERCENT 10 % (BEAKER) (test code = 432) BASOPHILS RELATIVE PERCENT 0 % (BEAKER) (test code = 437) NEUTROPHILS ABSOLUTE COUNT 12.23 K/ L 1.78-5.38 H (BEAKER) (test code = 670) LYMPHOCYTES ABSOLUTE COUNT 1.30 K/ L 1.32-3.57 L (BEAKER) (test code = 414) MONOCYTES ABSOLUTE COUNT (BEAKER) 0.58 K/ L 0.30-0.82 (test code = 415) EOSINOPHILS ABSOLUTE COUNT 1.60 K/ L 0.04-0.54 H (BEAKER) (test code = 416) BASOPHILS ABSOLUTE COUNT (BEAKER) 0.05 K/ L 0.01-0.08 (test code = 417) IMMATURE GRANULOCYTES-RELATIVE 1 % 0-1 PERCENT (BEAKER) (test code = 6780)
[2020-07-11 05:12] LABS: Urine Blood Negative (Negative); Urine Glucose Negative (Negative); Urine Protein 1+ (Negative); Urine Specific Gravity >=1.030 (1.005-1.030); Urine pH 5.5 (5.0-7.0)
[2020-07-11] MEDS ORDERED: NA CHLORIDE 0.9% 1,000 ML ONE ×2 (05:22→06:23)
[2020-07-11] MEDS ORDERED: FAMOTIDINE 20 MG/2 ML VIAL IV ONE (05:22)
[2020-07-11] MEDS ORDERED: MORPHINE 2 MG/ML SYR ONE (05:22)
[2020-07-11] MEDS ORDERED: METRONIDAZOLE 500mg IVPB 500 MG/100 ML BAG IV ONE (05:22)
[2020-07-11] MEDS ORDERED: ONDANSETRON 4 MG/2 ML VIAL ONE ×2 (05:22→06:23)
[2020-07-11] MEDS ORDERED: CIPROFLOXACIN 400mg IV 400 MG/200 ML BAG IV ONE (05:22)
[2020-07-11 05:29] LABS: Absolute Lymphocytes (CBC) 1.5 K/uL (0.7-4.9); Basophils % 0.4 % (0-1.3); Hematocrit 51.3 % (39.6-49.0); Lymphocytes % 12.3 % (15.3-44.8); MPV 9.2 fL (7.6-11.3); RBC Red Blood Cell Count 5.62 M/uL (4.33-5.43)
[2020-07-11 05:36] LABS: Albumin 3.8 g/dL (3.4-5.0); Bilirubin Direct 0.2 mg/dL (0-0.2); Bilirubin Total 0.7 mg/dL (0.2-1.0); Potassium 3.9 mmol/L (3.5-5.1); Protein, Total 7.4 g/dL (6.4-8.2)
[2020-07-11] MEDS ORDERED: HYDROMORPHONE HCL 1 MG/ML INJ ONE (06:44)
--- NOTE | 2020-07-11 07:13 | EDPHYS ---
Physician Documentation [facility] Name: Gildardo Mccann Age: 24 yrs Sex: Male : 1995 Arrival Date: 07/11/2020 Time: 04:19 Bed 26 Private MD: ED Physician Pepe Prasad HPI: 07/11 05:02 This 24 yrs old Male presents to ER via Ambulatory with complaints of itzel Vomiting. 05:02 The patient presents to the emergency department with nausea, vomiting, diarrhea, itzel abdominal pain, of the right upper quadrant, left upper quadrant, right lower quadrant and left lower quadrant. Onset: The symptoms/episode began/occurred 1 day(s) ago. Possible causes: unknown. The symptoms are aggravated by nothing. The symptoms are alleviated by nothing. Associated signs and symptoms: The patient has no apparent associated signs or symptoms. Severity of symptoms: At their worst the symptoms were moderate in the emergency department the symptoms are unchanged. The patient has not experienced similar symptoms in the past. 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 - Social history:: Smoking status: Patient denies any tobacco usage or history of. Patient uses alcohol. - Family history:: not pertinent. ROS: 05:06 Constitutional: Negative for fever, chills, and weight loss, Eyes: Negative for injury, itzel pain, redness, and discharge, ENT: Negative for injury, pain, and discharge, Neck: Negative for injury, pain, and swelling, Cardiovascular: Negative for chest pain, palpitations, and edema, Respiratory: Negative for shortness of breath, cough, wheezing, and pleuritic chest pain, Back: Negative for injury and pain, : Negative for injury, bleeding, discharge, and swelling, MS/Extremity: Negative for injury and deformity, Skin: Negative for injury, rash, and discoloration, Neuro: Negative for headache, weakness, numbness, tingling, and seizure, Psych: Negative for depression, anxiety, suicide ideation, homicidal ideation, and hallucinations, Allergy/Immunology: Negative for hives, rash, and allergies, Endocrine: Negative for neck swelling, polydipsia, polyuria, polyphagia, and marked weight changes, Hematologic/Lymphatic: Negative for swollen nodes, abnormal bleeding, and unusual bruising. 05:06 Abdomen/GI: Positive for abdominal pain, nausea and vomiting, nausea, vomiting, diarrhea, abdominal cramps, of the right upper quadrant, left upper quadrant, right lower quadrant and left lower quadrant. Exam: 05:03 Constitutional: This is a well developed, well nourished patient who is awake, alert, itzel and in no acute distress. Head/Face: Normocephalic, atraumatic. Eyes: Pupils equal round and reactive to light, extra-ocular motions intact. Lids and lashes normal. Conjunctiva and sclera are non-icteric and not injected. Cornea within normal limits. Periorbital areas with no swelling, redness, or edema. ENT: Nares patent. No nasal discharge, no septal abnormalities noted. Tympanic membranes are normal and external auditory canals are clear. Oropharynx with no redness, swelling, or masses, exudates, or evidence of obstruction, uvula midline. Mucous membranes moist. Neck: Trachea midline, no thyromegaly or masses palpated, and no cervical lymphadenopathy. Supple, full range of motion without nuchal rigidity, or vertebral point tenderness. No Meningismus. Chest/axilla: Normal chest wall appearance and motion. Nontender with no deformity. No lesions are appreciated. Cardiovascular: Regular rate and rhythm with a normal S1 and S2. No gallops, murmurs, or rubs. Normal PMI, no JVD. No pulse deficits. Respiratory: Lungs have equal breath sounds bilaterally, clear to auscultation and percussion. No rales, rhonchi or wheezes noted. No increased work of breathing, no retractions or nasal flaring. Back: No spinal tenderness. No costovertebral tenderness. Full range of motion. Male : Normal genitalia with no discharge or lesions. Skin: Warm, dry with normal turgor. Normal color with no rashes, no lesions, and no evidence of cellulitis. MS/ Extremity: Pulses equal, no cyanosis. Neurovascular intact. Full, normal range of motion. Neuro: Awake and alert, GCS 15, oriented to person, place, time, and situation. Cranial nerves II-XII grossly intact. Motor strength 5/5 in all extremities. Sensory grossly intact. Cerebellar exam normal. Normal gait. Psych: Awake, alert, with orientation to person, place and time. Behavior, mood, and affect are within normal limits. 05:03 Abdomen/GI: Inspection: distension, Bowel sounds: active, Palpation: mild abdominal tenderness, moderate abdominal tenderness, in the right upper quadrant, left upper quadrant, right lower quadrant and left lower quadrant, Liver: no appreciated palpable abnormalities, Hernia: not appreciated. Vital Signs: 04:34 BP 134 / 78; Pulse 81; Resp 18; Temp 97.8; Pulse Ox 100% ; Weight 92.99 kg; Height 6 wh ft. 0 in. (182.88 cm); 06:28 BP 130 / 86; Pulse 83; Resp 18; Pulse Ox 99% on R/A; wh 04:34 Body Mass Index 27.80 (92.99 kg, 182.88 cm) wh MDM: 04:24 Patient medically screened. [facility] 05:07 Differential diagnosis: Nonspecific abd pain, gastritis, pancreatitis, diverticulitis, itzel viral gastroenteritis, gastroenteritis. Data reviewed: vital signs, nurses notes, lab test result(s), radiologic studies, CT scan. Data interpreted: threat monitoring analyst: rate is 81 beats/min, rhythm is regular, Pulse oximetry: on room air is 100 %. Test interpretation: by ED physician or midlevel provider:. Counseling: I had a detailed discussion with the patient and/or guardian regarding: the historical points, exam findings, and any diagnostic results supporting the discharge/admit diagnosis, lab results, radiology results. 07/11 04:58 Order name: Basic Metabolic Panel [facility] 07/11 04:58 Order name: CBC with Diff [facility] 07/11 04:58 Order name: Hepatic Function [facility] 07/11 04:58 Order name: Lipase [facility] 07/11 04:58 Order name: COVID-19 : Document "Date of Symptom Onset" if Symptomatic. [facility] 07/11 05:00 Order name: Stool Culture [facility] 07/11 05:00 Order name: Fecal Leukocyte Stain [facility] 07/11 05:12 Order name: Urine Dipstick-Ancillary; Complete Time: 06:00 EDMD 07/11 05:37 Order name: Basic Metabolic Panel; Complete Time: 06:00 EDMD 07/11 05:37 Order name: Liver (Hepatic) Function; Complete Time: 06:00 EDMD 07/11 05:37 Order name: Lipase; Complete Time: 06:00 EDMD 07/11 05:41 Order name: CBC with Automated Diff [facility] 07/11 06:35 Order name: CORONAVIRUS EDMS 07/11 07:16 Order name: SARS-COV-2 RT PCR EDMS 07/11 04:59 Order name: CT Abd/Pelvis - IV Contrast Only [facility] 07/11 07:16 Order name: CT EDMS 07/11 08:08 Order name: Manual Differential EDMS 07/11 09:50 Order name: CBC with Automated Diff EDMS 07/11 09:50 Order name: CBC with Automated Diff EDMS 07/11 09:50 Order name: Comprehensive Metabolic Panel EDMS 07/11 09:50 Order name: Comprehensive Metabolic Panel EDMS 07/11 09:51 Order name: Immunoglobulin E EDMS 07/11 09:51 Order name: Immunoglobulin E EDMS 07/11 04:58 Order name: IV Saline Lock; Complete Time: 05:06 [facility] 07/11 04:58 Order name: Labs collected and sent; Complete Time: 05:06 [facility] 07/11 04:58 Order name: Urine Dipstick-Ancillary (obtain specimen); Complete Time: 05:06 [facility] 07/11 09:50 Order name: CONS Physician Consult EDMD 07/11 09:50 Order name: NPO EDMS Administered Medications: 05:16 Drug: morphine 2 mg Route: IVP; Site: right antecubital; mg2 05:16 Drug: Zofran (Ondansetron) 4 mg Route: IVP; Site: right antecubital; mg2 05:16 Drug: Pepcid (famotidine) 20 mg Route: IVP; Site: right antecubital; mg2 05:17 Drug: NS 0.9% 1000 ml Route: IV; Rate: 1 bolus; Site: right antecubital; mg2 05:17 Drug: Flagyl (metroNIDAZOLE) 500 mg Volume: 100 ml; Route: IVPB; Rate: 200 ml/hr; mg2 Infused Over: 30 mins; Site: right antecubital; 06:11 Follow up: IV Status: Completed infusion; IV Intake: 100ml bb 05:29 Drug: Cipro (ciprofloxacin) 400 mg Volume: 200 ml; Route: IVPB; Infused Over: 60 mins; mg2 Site: right antecubital; 06:12 Drug: Zofran (Ondansetron) 4 mg Route: IVP; Site: right antecubital; bb 06:12 Drug: NS 0.9% 1000 ml Route: IV; Rate: 1 bolus; Site: right antecubital; bb 06:32 Drug: Dilaudid (HYDROmorphone) 1 mg Route: IVP; Site: right antecubital; jb4 Disposition: 07/11/20 07:12 Hospitalization ordered by Miryam Corbett for Observation. Preliminary diagnosis are Abdominal tenderness, Vomiting, Diarrhea, unspecified, Eosinophilic gastritis or gastroenteritis. - Bed requested for Telemetry/MedSurg (observation). - Status is Observation. tw2 - Condition is Stable. - Problem is new. - Symptoms have improved. Signatures: Dispatcher [employer] EDMS Tamika Arroyo Corey, MD MD cha Ballard, Brenda, RN RN Xi Barajas RN RN tw2 Denis Reveles RN RN jb4 Stevie Byrd, RN RN Dk Goel, RN RN mg2 Corrections: (The following items were deleted from the chart) 10:08 07:12 Hospitalization Ordered by Miryam Corbett MD for Observation. Preliminary tw2 diagnosis is Abdominal tenderness; Vomiting; Diarrhea, unspecified; Eosinophilic gastritis or gastroenteritis. Bed requested for Telemetry/MedSurg (observation). Status is Observation. Condition is Stable. Problem is new. Symptoms have improved. [facility] 10:11 10:08 07/11/2020 07:12 Hospitalization Ordered by Miryam Corbett MD for Observation. bd Preliminary diagnosis is Abdominal tenderness; Vomiting; Diarrhea, unspecified; Eosinophilic gastritis or gastroenteritis. Bed requested for [facility] ER HOLD. Status is Observation. Condition is Stable. Problem is new. Symptoms have improved. tw2 14:54 10:11 07/11/2020 07:12 Hospitalization Ordered by Miryam Corbett MD for Observation. bd Preliminary diagnosis is Abdominal tenderness; Vomiting; Diarrhea, unspecified; Eosinophilic gastritis or gastroenteritis. Bed requested for [facility] ER HOLD. Status is Observation. Condition is Stable. Problem is new. Symptoms have improved. bd 15:26 14:54 07/11/2020 07:12 Hospitalization Ordered by Miryam Corbett MD for Observation. tw2 Preliminary diagnosis is Abdominal tenderness; Vomiting; Diarrhea, unspecified; Eosinophilic gastritis or gastroenteritis. Bed requested for Telemetry/MedSurg (observation). Status is Observation. Condition is Stable. Problem is new. Symptoms have improved. bd
--- NOTE | 2020-07-11 07:13 | ER ---
Nurse's Notes [facility] Name: Gildardo Mccann Age: 24 yrs Sex: Male : 1995 Arrival Date: 07/11/2020 Time: 04:19 Bed 26 Private MD: Diagnosis: Abdominal tenderness;Vomiting;Diarrhea, unspecified;Eosinophilic gastritis or gastroenteritis Presentation: 07/11 04:34 Chief complaint: Patient states: Hx of Eosinophilic Colonitis, C/O abd pain, vomiting wh and diarrhea since yesterday. Coronavirus screen: Client denies travel out of the [place] in the last 14 days. At this time, the client does not indicate any symptoms associated with coronavirus-19. Ebola Screen: Patient negative for fever greater than or equal to 101.5 degrees Fahrenheit, and additional compatible Ebola Virus Disease symptoms Patient denies exposure to infectious person. Initial Sepsis Screen: Does the patient meet any 2 criteria? No. Patient's initial sepsis screen is negative. Does the patient have a suspected source of infection? Yes: Acute abdominal pain. Risk Assessment: Do you want to hurt yourself or someone else? Patient reports no desire to harm self or others. Onset of symptoms was July 11, 2020. 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 - Social history:: Smoking status: Patient denies any tobacco usage or history of. Patient uses alcohol. - Family history:: not pertinent. Screenin:36 Abuse screen: Denies threats or abuse. Denies injuries from another. Nutritional screening: No deficits noted. Tuberculosis screening: No symptoms or risk factors identified. Fall Risk None identified. Assessment: 04:35 General: Appears in no apparent distress. Behavior is calm, cooperative, appropriate for age. Pain: Complains of pain in abdomen Pain does not radiate. Quality of pain is described as aching, crampy, Pain began 1 day ago. Neuro: Level of Consciousness is awake, alert, obeys commands, Oriented to person, place, time, situation, Appropriate for age. Cardiovascular: Capillary refill < 3 seconds. Respiratory: Airway is patent Respiratory effort is even, unlabored, Respiratory pattern is regular, symmetrical. GI: Abdomen is flat, non-distended, Abd is soft. GI: Reports diarrhea, vomiting. : No signs and/or symptoms were reported regarding the genitourinary system. EENT: No signs and/or symptoms were reported regarding the EENT system. Derm: Skin is intact, is healthy with good turgor, Skin is pink, warm \T\ dry. normal. Musculoskeletal: Circulation, motion, and sensation intact. 06:00 Reassessment: Patient appears in no apparent distress at this time. No changes from previously documented assessment. Patient and/or family updated on plan of care and expected duration. Pain level reassessed. Patient is alert, oriented x 3, equal unlabored respirations, skin warm/dry/pink. 09:55 Reassessment: Patient appears in no apparent distress at this time. Patient and/or tw2 family updated on plan of care and expected duration. Pain level reassessed. Patient is alert, oriented x 3, equal unlabored respirations, skin warm/dry/pink. per VO by Dr. Aric NEVAREZ at this time until this evening, will advance diet to clear liquids to tolerance. 15:26 Reassessment: report given to ARSENIO Truong. tw2 Vital Signs: 04:34 BP 134 / 78; Pulse 81; Resp 18; Temp 97.8; Pulse Ox 100% ; Weight 92.99 kg; Height 6 wh ft. 0 in. (182.88 cm); 06:28 BP 130 / 86; Pulse 83; Resp 18; Pulse Ox 99% on R/A; 04:34 Body Mass Index 27.80 (92.99 kg, 182.88 cm) ED Course: 04:19 Patient arrived in ED. cl3 04:24 Pepe Prasad MD is Attending Physician. itzel 04:32 Stevie Byrd, RN is Primary Nurse. 04:35 Triage completed. 04:37 Patient has correct armband on for positive identification. Bed in low position. Call light in reach. Side rails up X 1. Pulse ox on. NIBP on. 04:37 Arm band placed on right wrist. 05:03 Inserted saline lock: 20 gauge in right antecubital area, using aseptic technique. ds4 Blood collected. 07:06 Miryam Corbett MD is Hospitalizing Provider. itzel 10:05 Primary Nurse role handed off by Stevie Byrd RN tw2 10:05 Xi Orosco, RN is Primary Nurse. tw2 Administered Medications: 05:16 Drug: morphine 2 mg Route: IVP; Site: right antecubital; mg2 05:16 Drug: Zofran (Ondansetron) 4 mg Route: IVP; Site: right antecubital; mg2 05:16 Drug: Pepcid (famotidine) 20 mg Route: IVP; Site: right antecubital; mg2 05:17 Drug: NS 0.9% 1000 ml Route: IV; Rate: 1 bolus; Site: right antecubital; mg2 05:17 Drug: Flagyl (metroNIDAZOLE) 500 mg Volume: 100 ml; Route: IVPB; Rate: 200 ml/hr; mg2 Infused Over: 30 mins; Site: right antecubital; 06:11 Follow up: IV Status: Completed infusion; IV Intake: 100ml bb 05:29 Drug: Cipro (ciprofloxacin) 400 mg Volume: 200 ml; Route: IVPB; Infused Over: 60 mins; mg2 Site: right antecubital; 06:12 Drug: Zofran (Ondansetron) 4 mg Route: IVP; Site: right antecubital; bb 06:12 Drug: NS 0.9% 1000 ml Route: IV; Rate: 1 bolus; Site: right antecubital; bb 06:32 Drug: Dilaudid (HYDROmorphone) 1 mg Route: IVP; Site: right antecubital; jb4 Intake: 06:11 IV: 100ml; Total: 100ml. bb Outcome: 07:12 Decision to Hospitalize by Provider. itzel 15:26 Patient left the ED. tw2 Signatures: Pepe Prasad MD MD cha Ballard, Brenda RN RN bb Blair Celaya ds4 Xi Orosco RN RN tw2 Denis Reveles RN RN jb4 Stevie Byrd RN RN Dk Goel RN RN mg2 Sherrie Benoit cl3
--- NOTE | 2020-07-11 07:16 | RAD REPORT ---
EXAM DESCRIPTION: CT - Abdomen Pelvis W Contrast - 07/11/2020 6:52 am CLINICAL HISTORY: ABD PAIN COMPARISON: Abdomen Pelvis W Contrast dated 10/24/2018 TECHNIQUE: Biphasic, helical CT imaging of the abdomen and pelvis was performed following 100 ml non -ionic IV contrast. No oral contrast administered. All CT scans are performed using dose optimization technique as appropriate and may include automated exposure control or mA/KV adjustment according to patient size. FINDINGS: No suspicious findings in the lung bases. The liver, spleen, and pancreas show no suspicious findings. Gallbladder and biliary tree are also wi thout suspicious finding. Symmetric renal function is seen with no hydronephrosis or suspicious renal mass. No pyelonephritis o r acute parenchymal process. Contracted urinary bladder shows no gross abnormality. No adrenal abnorm alities. Fluid-filled nondilated stomach shows no wall thickening or mass. Small bowel is not dilated though t here are multiple fluid-filled small bowel loops. Fluid is present filling the right-side of the colo n. There is no colon wall thickening, edema or mass identifiable. No direct or indirect evidence for appendicitis. No free air, free fluid or inflammatory stranding. No hernia, mass or bulky lymphadenopathy. No suspicious bony findings. IMPRESSION: Gastroenteritis findings are present with no obstruction, free air or surgically emergen t finding.
[2020-07-11 09:41] LABS: Blood Morphology Comment NOT SEEN (NOT SEEN); Platelet Estimate ADEQ
[2020-07-11] MEDS ORDERED: ONDANSETRON 4 MG/2 ML VIAL IV PRN (09:47)
[2020-07-11] MEDS ORDERED: MORPHINE 2 MG/ML SYR IV PRN (09:47)
[2020-07-11] MEDS ORDERED: ACETAMINOPHEN 500 MG TAB PO PRN (09:47)
[2020-07-11] MEDS ORDERED: METHYLPREDNISOLONE 125 MG INJ IV ONE (09:51)
[2020-07-11] MEDS: NA CHLORIDE 0.9% 1,000 ML IV SCH ×2 (10:30→17:01)
[2020-07-11 10:51] VITALS: BMI 27.8
[2020-07-11] MEDS ORDERED: HYDROMORPHONE HCL 1 MG/ML INJ IV ONE (12:33)
[2020-07-11] MEDS ORDERED: PROMETHAZINE 25 MG TABLET PO PRN (12:33)
[2020-07-11] MEDS: METHYLPREDNISOLONE 125 MG INJ IV SCH ×3 (14:46→23:27)
[2020-07-11] MEDS ORDERED: METHYLPREDNISOLONE 125 MG INJ ONE (15:02)
[2020-07-11 23:48] VITALS: O2SAT 96
[2020-07-12] MEDS: NA CHLORIDE 0.9% 1,000 ML IV SCH (00:42)
[2020-07-12 05:42] LABS: Absolute Lymphocytes (CBC) 0.8 K/uL (0.7-4.9); Hematocrit 45.1 % (39.6-49.0); Lymphocytes % 8.8 % (15.3-44.8); MPV 9.4 fL (7.6-11.3); RBC Red Blood Cell Count 4.91 M/uL (4.33-5.43)
[2020-07-12] MEDS: METHYLPREDNISOLONE 125 MG INJ IV SCH ×2 (05:54→12:38)
[2020-07-12 06:36] LABS: ALT/SGPT 134 U/L (12-78); AST/SGOT 43 U/L (15-37); Alkaline Phosphatase 34 U/L (45-117); BUN Blood Urea Nitrogen 9 mg/dL (7-18); Bicarbonate 23 mmol/L (21-32); Bilirubin Total 0.5 mg/dL (0.2-1.0); Glucose Level 116 mg/dL (74-106); Potassium 4.3 mmol/L (3.5-5.1); Protein, Total 5.8 g/dL (6.4-8.2); Sodium Level 139 mmol/L (136-145)
[2020-07-12 10:14] VITALS: BP 113/53
[2020-07-12 12:17] VITALS: TEMP 98.9
--- NOTE | 2020-07-31 03:42 | P.HP ---
Certification for Inpatient Patient admitted to: Observation With expected LOS: <2 Midnights Patient will require the following post-hospital care: None Practitioner: I am a practitioner with admitting privileges, knowledge of patient current condition, hospital course, and medical plan of care. Services: Services provided to patient in accordance with Admission requirements found in Title 42 Section 412.3 of the Code of Federal Regulations Patient History Date of Service: 07/11/20 Reason for admission: Eosinophilic colitis History of Present Illness: Patient is a 24-year-old gentleman who came to the hospital with abdominal pain along with nausea and vomiting. He was diagnosed by GI with the eosinophilic colitis. He has to take steroids whenever he has episode/flare up. He had a CT scan which reveals the colitis. He will be admitted to the hospital for IV antibiotic therapy along with IV steroids. Monitor him over the next 24 hr and hopefully we can advance his diet. Allergies No Known Allergies Allergy (Verified 10/21/18 19:33) Home Medications: Promethazine Tab [Phenergan] 25 mg PO Q6HP PRN #30 tab 07/12/20 predniSONE [Deltasone] 20 mg PO BID #20 tab 07/12/20 - Past Medical/Surgical History Has patient received pneumonia vaccine in the past: No Diabetic: No -: ruptured disk at back -: Cyst removal from forehead - Social History Smoking Status: Never smoker Alcohol use: No CD- Drugs: No Caffeine use: No Review of Systems 10-point ROS is otherwise unremarkable Physical Examination - Vital Signs Temperature: 98.9 F Blood Pressure: 113/53 Pulse: 104 Respirations: 16 Pulse Ox (%): 97 - Physical Exam General: Alert, In no apparent distress, Oriented x3 HEENT: Atraumatic, PERRLA, Mucous membr. moist/pink, EOMI, Sclerae nonicteric Neck: Supple, 2+ carotid pulse no bruit, No LAD, Without JVD or thyroid abnormality Respiratory: Clear to auscultation bilaterally, Normal air movement Cardiovascular: Regular rate/rhythm, Normal S1 S2 Gastrointestinal: No rebound, No guarding, Absent bowel sounds, Tenderness Musculoskeletal: No clubbing, No swelling, No tenderness Integumentary: No rashes Neurological: Normal gait, Normal speech, Normal strength at 5/5 x4 extr, Normal tone, Sensation intact, Cranial nerves 3-12 intact, Normal affect Lymphatics: No axilla or inguinal lymphadenopathy Assessment & Plan - Problems (Diagnosis) (1) Eosinophilic colitis Status: Acute (2) Intractable nausea and vomiting Status: Acute - Plan 1. Continue with IV hydration 2. Continue with IV antibiotics 3. Continue with pain control 4. NPO 5. IV steroids 6. Serial H&H, and we will monitor CBC, BMP, LFTs and lipase along with electrolytes. 7. GI and DVT prophylaxis Discharge Plan: Home Plan to discharge in: 48 Hours - Advance Directives Does patient have a Living Will: No Does patient have a Durable POA for Healthcare: No - Code Status/Comfort Care Code Status Assessed: Yes Code Status: Full Code Critical Care: No Time Spent Managing PTS Care (In Minutes): 45
--- NOTE | 2020-07-31 03:44 | P.DS ---
Discharge Date: 07/12/20 Disposition: ROUTINE DISCHARGE Discharge Condition: GOOD Reason for Admission: Eosinophilic colitis - Problems (1) Eosinophilic colitis Status: Acute (2) Intractable nausea and vomiting Status: Acute Brief History of Present Illness: Patient is a 24-year-old gentleman who came to the hospital with abdominal pain along with nausea and vomiting. He was diagnosed by GI with the eosinophilic colitis. He has to take steroids whenever he has episode/flare up. He had a CT scan which reveals the colitis. He will be admitted to the hospital for IV antibiotic therapy along with IV steroids. Monitor him over the next 24 hr and hopefully we can advance his diet. Hospital Course: Patient done well during hospital stay. Patient's symptoms are completely resolved with the IV steroids. Patient will continue with outpatient follow-up with Gastroenterology. Advanced diet as tolerated and anticipate discharge home later today. Vital Signs/Physical Exam: Temp Pulse Resp BP Pulse Ox 98.9 F 104 H 16 113/53 L 97 07/31/20 03:41 07/31/20 03:41 07/31/20 03:41 07/31/20 03:41 07/31/20 03:41 General: Alert, In no apparent distress, Oriented x3 Laboratory Data at Discharge: WBC 8.80 K/uL (4.3-10.9) D 07/12/20 05:04 Hgb 14.9 g/dL (13.6-17.9) 07/12/20 05:04 Hct 45.1 % (39.6-49.0) 07/12/20 05:04 Plt Count 321 K/uL (152-406) 07/12/20 05:04 Sodium 139 mmol/L (136-145) 07/12/20 05:04 Potassium 4.3 mmol/L (3.5-5.1) 07/12/20 05:04 BUN 9 mg/dL (7-18) 07/12/20 05:04 Creatinine 0.68 mg/dL (0.55-1.3) 07/12/20 05:04 Glucose 116 mg/dL (74-106) H 07/12/20 05:04 Total Bilirubin 0.5 mg/dL (0.2-1.0) 07/12/20 05:04 AST 43 U/L (15-37) H 07/12/20 05:04 ALT 134 U/L (12-78) H 07/12/20 05:04 Alkaline Phosphatase 34 U/L (45-117) L 07/12/20 05:04 Lipase 99 U/L (73-393) 07/11/20 05:03 Home Medications: Promethazine Tab [Phenergan] 25 mg PO Q6HP PRN #30 tab 07/12/20 predniSONE [Deltasone] 20 mg PO BID #20 tab 07/12/20 New Medications: Promethazine Tab [Phenergan] 25 mg PO Q6HP PRN #30 tab PRN Reason: Nausea / Vomiting predniSONE [Deltasone] 20 mg PO BID #20 tab Physician Discharge Instructions: OK TO DC IV AND DC HOME FOLLOW-UP WITH PRIMARY CARE PROVIDER IN 1-2 WEEKS FOLLOW-UP WITH chef concierge IN 1-2 WEEKS RETURN TO THE ER IF symptoms worsen CALL or TEXT DR. EASTMAN AT [phone] IF ANY QUESTIONS REGARDING HOSPITAL STAY. PLEASE CALL THE FLOOR AT [phone] IF ANY MEDICATION OR NURSING QUESTIONS. Diet: Regular Activity: Fall precautions Followup: Umang Gomez MD [ACTIVE - CAN ADMIT] - 1-2 Weeks (Follow up in office in 1-2 weeks. Call to schedule an appointment.) Time spent managing pt's care (in minutes): 35
== END 2020-07-12 14:42 | disposition home or self-care (01) ==
LOC: ER 04:16 → ERHOLD 09:48 → 2ND 15:19
PROVIDERS: ADMIT Hospitalist; ATTEND Hospitalist
DX: R11.2 Nausea with vomiting, unspecified (principal); R19.7 Diarrhea, unspecified; Z20.822 Contact with and (suspected) exposure to COVID-19
CPT/HCPCS: 36415; 74177; 80048; 80053; 80076; 81003; 82785; 83690; 85025; 96365; 96375; 99284; G0378; J0744; J1170; J2270; J2405; J2930; J7030; Q0169; Q9967; U0003